=== PATIENT | female | born 1960 | race Caucasian/White ===

== ENCOUNTER → 2018-08-10 | Outpatient (CLI) | payer OTHER | LOC: LABPAT 13:08 | PROVIDERS: ATTEND Orthopaedic Surgery Orthopaedic Surgery of the Spine | DX: Z01.812 Encounter for preprocedural laboratory examination (principal) | CPT/HCPCS: 87070 ==

== ENCOUNTER 2018-09-26 06:26 | Inpatient (IN) | payer OTHER ==
[~2018-09-26 06:26] MED LIST: BACITRACIN 50,000 UNIT, POLYMYXIN B 500,000 UNIT in SODIUM CHLORIDE 0.9% IRRIGATIO 1,00... IRRIGATION ONE; LACTATED RINGERS 1,000 ML IV SCH; LIDOCAINE 1% 20 ML VIAL (10MG/ML) FOR IV START INTRADERMA PRN; METOCLOPRAMIDE 5 MG/ML 2 ML VIAL IVP PRN; ONDANSETRON 4 MG/2 ML VIAL IVP ONE; ceFAZolin IN SWFI 2 GM/20 ML SYRINGE IVP ONE
[2018-09-26 06:58] LABS: Glucose,Whole Blood 77 mg/dL (75-99)
[2018-09-26] MEDS ORDERED: LACTATED RINGERS 1,000 ML IV ONE ×4 (07:00→13:13)
[2018-09-26] MEDS: DEXAMETHASONE SOD PHOSPHATE 10 MG/ML 1 ML VIAL IV ONE ×2 (07:00→15:59)
[2018-09-26] MEDS ORDERED: NEOSTIGMINE 1 MG/ML 10 ML VIAL ONE (07:26)
[2018-09-26] MEDS ORDERED: LIDOCAINE 1% INJ 10MG/ML (20 ML MDV) ONE (07:26)
[2018-09-26] MEDS ORDERED: fentaNYL (PF) 50 MCG/ML 2 ML AMP ONE (07:26)
[2018-09-26] MEDS ORDERED: LACTATED RINGERS 1,000 ML BAG IV ONE (07:26)
[2018-09-26] MEDS ORDERED: MIDAZOLAM 2 MG/2 ML VIAL ONE (07:26)
[2018-09-26] MEDS ORDERED: ePHEDrine SULFATE/0.9% NACL/PF 50 MG/5 ML SYRINGE IV ONE (07:26)
[2018-09-26] MEDS ORDERED: PROPOFOL 10 MG/ML 20 ML VIAL IV ONE (07:26)
[2018-09-26] MEDS ORDERED: GLYCOPYRROLATE 0.2 MG/ML 2 ML VIAL ONE (07:26)
[2018-09-26] MEDS ORDERED: PHENYLEPHRINE-0.9% NACL SYG 1 MG/10 ML SYRINGE ONE (07:26)
[2018-09-26] MEDS ORDERED: HEPARIN SODIUM,PORCINE 10,000 UNIT/ML 1 ML VIAL ONE (07:26)
[2018-09-26] MEDS ORDERED: SUCCINYLCHOLINE CHLORIDE 100 MG/5 ML SYR IV ONE (07:26)
[2018-09-26] MEDS ORDERED: ROCURONIUM BROMIDE 10 MG/ML 10 ML VIAL IV ONE (07:26)
[2018-09-26] MEDS ORDERED: THROMBIN (BOVINE) 5,000 UNIT VIAL TOPICAL ONE (07:33)
[2018-09-26] MEDS ORDERED: LIDOCAINE 0.5%-EPI 1:200,000 50 ML VIAL SQ ONE (07:33)
[2018-09-26] MEDS ORDERED: GELATIN SPONGE,ABSORB (LARGE) 1 EACH SPONGE TOPICAL ONE (07:33)
[2018-09-26 07:56] LABS: Albumin 3.3 g/dL (3.5-5.0); Calcium 8.9 mg/dL (8.4-10.2); Potassium 3.5 mmol/L (3.5-5.1); Total Bilirubin 0.3 mg/dL (0.2-1.3); Total Protein 5.8 g/dL (6.3-8.2)
[2018-09-26 08:06] LABS: INR 0.9 (<1.2); Partial Thromboplastin Time 23.4 sec (22.0-30.0); Prothrombin Time 9.6 sec (9.0-12.0)
[2018-09-26 10:15] LABS: Basophils % (A) 1 %; Eosinophils # (A) 0.2 k/uL (0-0.7); Eosinophils % (A) 4 %; HCT 33.5 % (34.0-46.0); HGB 10.6 gm/dL (11.4-16.0); Hypochromasia Moderate; Lymphocytes # (A) 1.4 k/uL (1.0-4.8); Lymphocytes % (A) 30 %; MCH 30.9 pg (25.0-35.0); MCHC 31.7 g/dL (31.0-37.0); MCV 97.4 fL (80.0-100.0); Mean Platelet Volume 7.4; Monocytes # (A) 0.3 k/uL (0-1.0); Monocytes % (A) 6 %; Neutrophils # (A) 2.7 k/uL (1.3-7.7); Neutrophils % (A) 57 %; Platelet Count 198 k/uL (150-450); RBC 3.44 m/uL (3.80-5.40); RDW 13.8 % (11.5-15.5); WBC 4.7 k/uL (3.8-10.6)
[2018-09-26] MEDS ORDERED: BACITRACIN 50,000 UNIT, POLYMYXIN B 500,000 UNIT in SODIUM CHLORIDE 0.9% IRRIGATIO 1,00... IRRIGATION ONE (10:36)
[2018-09-26] MEDS ORDERED: MAGNESIUM HYDROXIDE 2,400 MG/10 ML CUP PO PRN (12:09)
[2018-09-26] MEDS ORDERED: ONDANSETRON 4 MG/2 ML VIAL IVP PRN (12:09)
[2018-09-26] MEDS ORDERED: HYDROmorphone 1 MG/ML 1 ML SYRINGE IVP PRN (12:09)
[2018-09-26] MEDS ORDERED: BENZOCAINE/MENTHOL LOZENG 1 EACH LOZENGE MUCOUS MEM PRN (12:09)
[2018-09-26] MEDS: HYDROmorphone 0.5 MG/0.5 ML SYRINGE IVP PRN ×4 (12:23→22:28)
--- NOTE | 2018-09-26 12:32 | P.OP ---
Date of Procedure: 09/26/18 Preoperative Diagnosis: Degenerative scoliosis, spondylolisthesis, spinal stenosis, low back pain, degenerative disc disease, lower extremity radiculopathy, Postoperative Diagnosis: Degenerative scoliosis, spondylolisthesis, spinal stenosis, low back pain, degenerative disc disease, lower extremity radiculopathy, Anesthesia: GETA Pathology: none sent Condition: stable Disposition: PACU Description of Procedure: DESCRIPTION OF PROCEDURE(S): BRIEF OPERATIVE NOTE Preoperative Diagnosis: Degenerative scoliosis, spondylolisthesis, spinal stenosis, low back pain, degenerative disc disease, lower extremity radiculopathy, Postoperative Diagnosis:Degenerative scoliosis, spondylolisthesis, spinal stenosis, low back pain, degenerative disc disease, lower extremity radiculopathy, Procedure: Laminectomy and decompressionwith bilateral foraminotomies L2-3 and L3 4 L4 5 L5-S1 Minimally invasive Posterior lateral decompression and facet fusionL2-3 L3 4 L4 5 L5-S1 Minimally invasive Transforaminal lumbar interbody fusion for a 360 fusionL3 4 L4 5 Discectomy for decompressionL3 4 L4 5 Placement of interbody graftL3 4 L4 5 Local autogenous bone grafting harvesting of bone marrow aspirate for use as autograft Use of Cell Saver Use of bone graft extenders Surgeon: Dr. Cruz Medical Technologist Chief: Emory DURÁN who is present throughout the entire the case persistence during positioning, dissection, exposure, visualization, and all crucial elements of the case as well as closure. Anesthesia: General anesthesia per Dr. Cueva Estimated blood loss:approximately 400 mL with approximately 160 mL given back through Cell Saver Complications: None apparent Components implanted:K2M minimally invasive Baker pedicle screw system with 6.5 mm screws 2 rods and cascade interbody cages with 1 osteo amp sponge and 30 mL of DBX bone putty supplement the local autogenous bone graft and bone marrow aspirate Disposition: To recovery room in good stable condition. OPERATIVE INDICATIONS The patient has had long-standing issues in their lower back and lower extremities. she was found have degenerative scoliosis with spondylolisthesis and spinal stenosis. These findings correlated well with her low back and lower show be symptoms.The patient has been through conservative treatment. she is not having any prolonged benefit despite aggressive conservative treatment and was having worsening of her symptoms and worsening of her ability to mobilize and ambulate. We discussed the nature of her issues at length.We discussed various treatment options including surgery, and the patient wishes to proceed with surgery. I felt that there were severe changes at L3 4 and L4 5 with severe changes and listhesis at L2-3 as well. There is also some change at L1 2 with moderate stenosis and seen if he disc degeneration with some moderate stenosis at L5-S1 with significant disc height loss. We discussed the possibility of decompression and fusion and the need to address the full curvature along with her degenerative change and listhesis. She had degenerative scoliosis and she was consented for decompression fusion L2-3 L3 4 L4 5 with possible L1-2 and L5- S1. During the patient's procedure I felt that need to include L5-S1 space but I did not feel we had to include L1-2 spacehas progressed to the procedure itself. We discussed the risk, patient's alternatives and benefits of surgery including but not limited to, risk of bleeding risk of infection, risk of need for further surgery, risk of decreased, loss of motion, muscle function, malunion nonunion, hardware failure, nerve damage, paralysis, heart attack, blindness and . OPERATIVE SUMMARY After discussing all the risks, patient alternatives and benefits at length, the patient elected to proceed with surgical intervention, signed informed consent, and presented for their procedure. The patient was seen and examined in the preoperative holding area and the surgical site was marked. The patient was given antibiotics and brought to the operating room. The patient was sedated and intubated by anesthesia in standard fashion. The patient was positioned on to the operating room table in a prone position on the appropriate frame which was well-padded and well molded. We were careful to pad any bony prominences and pressure points. We were careful to maintain the patient's cervical spine and good neutral alignment and position throughout. The patient was prepped and draped in a normal standard fashion. An appropriate timeout and keystone protocol performed. We were able to proceed with the surgery. The local wound area was infiltrated with local anesthetic. I was able utilize C-arm guidance to establish appropriate position over the pedicles bilaterally at the appropriate levelsfrom L2 to S1. With the appropriate levels confirmed was able to make small stab incisions over the appropriate pedicle sites bilaterally. Utilizing C-arm in his house able to establish a Jamshidi needle over the lateral aspect of the pedicle and advanced the trocar into the pedicle being careful not to breech superiorly inferiorly medially or laterally. Position was confirmed regularly with AP and lateral images on C-arm. I was able to establish the trocar into the pedicle appropriately into the posterior aspect of the vertebral body bilaterally at the appropriate levelsfrom L2 to S1. This was done at each of the pedicle positions and each of the vertebrae at L2-L3 L4-L5 and S1. I was able place the guidewire into the trocar and into the vertebral body appropriately under C-arm guidance. Dissection was taken down over the wire to the appropriate starting position for the screw placed. The appropriate length screw was chosen, threaded over the guidewire and screwed appropriately into the pedicle and vertebral body under C- arm guidance in excellent alignment and position with good bony purchase. This is done at each of the screw sites at the appropriate levelsat L2-L3 L4-L5 and S1. With the screws intact I extended the incision to connect the screw hole sites on the left hand side starting at L3-4 and then at L4-5. I dissected down to establish access over the pars and lamina to the base of the spinous process. I was able to expose the facet joint. The capsule the facet was taken down and showed some facet arthrosis at the joint. I was able to use a combination of curettes and Kerrison rongeurs and a high-speed drill to take down the facet joint and do a facetectomy. Partial laminectomy was also performed. I was able get excellent foraminal decompression and central decompression with undermining across midline to perform a laminectomy centrally and contralaterally. As able get good central decompression. The ligamentum flavum was taken down to further decompress centrally and at bilateral neural foramen. I was able to expose the disc space and visualize the traversing nerve root. Note was made of some disc protrusion at the level causing further compression of the nerve root. I was able to establish a annulotomy at the appropriate level protecting soft tissue and neural structures. Note was made of some disc desiccation at the disc. I performed a complete discectomy with accommodation of curettes and rasps and scrapers. I was able get good endplate preparation at the disc space. I sized for the appropriate size interbody spacer protecting the soft tissue and neural structures. The wound was copiously irrigated and suctioned dry. There is no evidence of any dural tear or leak. I was able to pack the disc space with local autogenous bone graft as well as a small amount of bone graft which was also placed into the interbody cage itself. Protecting the soft tissue structures and neural structures I was able place the interbody cage in good alignment and good position with good fit and fill at the interbody space. His issues was confirmed with C-arm guidance.this was done first at L3 4 and L4 5. I chose not place a interbody device at L2-3 and L5-S1. I was able to decompression laminectomy and bilateral foraminotomies L2-3 and L5-S1. Good hemostasis maintained. There is no evidence of any dural tear or leak. The wound was irrigated and suctioned dry. With the hardware intact, intraoperative C-arm imaging was again taken which showed good alignment and position of the hardware at the appropriate levels. We were then able to measure, contour and place the rods and appropriate hardware bilaterally. I was able to place capcrews, tighten them down, and torque them with the torque screwdriver appropriately. With this intact I was able to place the local autogenous bone graft with additional bone graft enhancer as necessary into the posterior lateral gutters over the decorticated transverse processes. The remainder of the bone graft was placed over the facet joint on the contralateral side after taking down the facet joint capsule. With the bone graft intact, a stable construct, and good decompression at the appropriate levels, we were able to proceed with closure. we had excellent reduction of the listhesis as well as with realignment of the scoliosis with the hardware intact. Good hemostasis was maintained. There is no evidence of dural tear or leak. The fascia was closed for a watertight closure. he subcuticular tissue was closed with absorbable suture. The wound was cleaned and dried and dressed with the appropriate dressing. The drapes were broken down. The patient was gently rolled back onto their hospital bed being careful to maintain their cervical spine and good neutral alignment and position. They were woken up by anesthesia, extubated, and brought to the recovery room in good stable condition. The patient will be admitted to the hospital for appropriate postoperative care, medical management and monitoring. We will continue to follow them closely about the postoperative course.
--- NOTE | 2018-09-26 13:01 | XR ---
Fluoroscopy History: lumbar fusion minimal invasive lumbar fusion, 2min 37sec fl time
[2018-09-26] MEDS ORDERED: diphenhydrAMINE 50 MG/ML 1 ML VIAL IVP ONE (13:11)
--- NOTE | 2018-09-26 15:08 | P.CONS ---
History of Present Illness - Reason for Consult Consult date: 09/26/18 medical management Requesting physician: Stephanie Cruz - History of Present Illness This is a 58-year-old female patient of Dr. Figueroa. Patient presented for an elective laminectomy and decompression with bilateral foraminotomies L2 to L3 and L3 to L4 and L4-L5. minimally invasive posterior lateral decompression and facet fusion of L2 to L3 L3 to L4 and L4 to L5 and fusion of L3 to L4 and L4 to L5. Patient has past medical history of degenerative scoliosis with spinal lithiasis and spinal stenosis. Additional medical history includes GERD, hyperlipidemia, liver disease, see arthritis, hypothyroidism, migraines, hiatal hernia and anxiety. At this time patient remains very sleepy from sedation. Patient does respond falls back to sleep. Patient denies any chest pain or shortness breath. Patient denies nausea vomiting diarrhea. Patient denies any urinary burning or frequency. Review of Systems please rerfer to HPI otherwise unremarkable Past Medical History Past Medical History: GERD/Reflux, Hyperlipidemia, Liver Disease, Osteoarthritis (OA), Thyroid Disorder Additional Past Medical History / Comment(s): primary biliary cirrhosis of liver, migraines, hiatal hernia, hypglycemia History of Any Multi-Drug Resistant Organisms: None Reported Past Surgical History: Back Surgery, Bladder Surgery, Cholecystectomy, Hysterectomy, Orthopedic Surgery Additional Past Surgical History / Comment(s): rt foot bunionectomy, arthroscopy rt knee, boone elbow surgery for spurs/tendons, rt shoulder rotator cuff, liver biopsy, Past Anesthesia/Blood Transfusion Reactions: No Reported Reaction Smoking Status: Former smoker - Past Family History Father Family Medical History: Cancer Medications and Allergies Home Medications Medication Instructions Recorded Confirmed Type Atorvastatin Calcium [Lipitor] 20 mg PO MOWEFR 09/19/18 09/26/18 History Cannabidiol (Cbd) Extract 1 applicate PO DIRECTED PRN 09/19/18 09/26/18 History [Epidiolex] Celecoxib [CeleBREX] 200 mg PO DAILY 09/19/18 09/26/18 History DULoxetine HCL [Cymbalta] 30 mg PO BID 09/19/18 09/26/18 History Ergocalciferol [Vitamin D2] 50,000 unit PO TH 09/19/18 09/26/18 History FLUoxetine HCL [PROzac] 40 mg PO DAILY 09/19/18 09/26/18 History Gabapentin [Neurontin] 600 mg PO BID 09/19/18 09/26/18 History Levothyroxine Sodium [Synthroid] 75 mcg PO DAILY 09/19/18 09/26/18 History Montelukast Sodium [Singulair] 10 mg PO DAILY 09/19/18 09/26/18 History Pantoprazole Sodium [Protonix] 40 mg PO QAM 09/19/18 09/26/18 History Raloxifene [Evista] 60 mg PO HS 09/19/18 09/26/18 History Temazepam [Restoril] 30 mg PO HS 09/19/18 09/26/18 History Topiramate [Topamax] 100 mg PO BID 09/19/18 09/26/18 History Ursodiol [Actigall] 300 mg PO BID 09/19/18 09/26/18 History Allergies Allergy/AdvReac Type Severity Reaction Status Date / Time codeine Allergy Abdominal Verified 09/26/18 14:35 Pain morphine Allergy Abdominal Verified 09/26/18 14:35 Pain acetaminophen [From Tylenol] AdvReac can not Verified 09/26/18 14:35 take due to liver disease Physical Exam Vitals: Vital Signs Temp Pulse Resp BP Pulse Ox 09/26/18 13:45 81 14 98/55 100 09/26/18 13:15 65 14 100/51 100 09/26/18 13:00 81 16 110/53 100 09/26/18 12:45 71 14 96/55 100 09/26/18 12:37 68 14 93/55 100 09/26/18 12:30 75 18 76/45 100 09/26/18 12:15 76 18 88/39 100 09/26/18 12:10 97.7 F 79 16 97/47 97 09/26/18 06:45 97.8 F 75 18 119/59 100 Intake and Output 09/25/18 09/26/18 09/26/18 22:59 06:59 14:59 Intake Total 3000 Output Total 700 Balance 2300 Intake: IV 3000 Output: Urine 250 Estimated Blood Loss 450 Head normocephalic Neck supple Lungs clear to auscultation bilaterally no wheezing or crackles Heart regular rate and rhythm S1-S2, no rub or gallop Abdomen is soft nontender nondistended positive bowel sounds no hepatosplenomegaly Extremities no edema Neuro alert and orientated to 3. Sleepy but follows commands Results CBC & Chem 7: 09/26/18 07:27 09/26/18 07:27 Labs: Abnormal Lab Results - Last 24 Hours (Table) 09/26/18 09/26/18 Range/Units 07:27 07:27 RBC 3.44 L (3.80-5.40) m/uL Hgb 10.6 L (11.4-16.0) gm/dL Hct 33.5 L (34.0-46.0) % Chloride 114 H (98-107) mmol/L Carbon Dioxide 21 L (22-30) mmol/L Total Protein 5.8 L (6.3-8.2) g/dL Albumin 3.3 L (3.5-5.0) g/dL Assessment and Plan Assessment: 1. Status post minimally invasive posterior lateral decompression fusion and transforaminal lumbar interbody fusion L2-L3, L3-L4, L4-L5 with Dr. Cruz 2. History of GERD 4. History of hyperlipidemia 5. History of liver disease 6. History of osteoarthritis 7. History of hypothyroidism 8. History of migraines 9. History of anxiety Thank you for this consultation we'll continue to follow patient closely throughout stay Time with Patient: Greater than 30 (Greater than 60% of the total time spent in counseling and coordination of care. I performed an examination of the patient and discussed their management with the Nurse Practitioner. I have reviewed the Nurse Practitioner's notes and agree with the documented findings and plan of care)
[2018-09-26] MEDS ORDERED: SODIUM CHLORIDE 0.9% 500 ML 500 ML IV ONE (15:29)
[2018-09-26] MEDS: KETOROLAC 30 MG/ML 1 ML VIAL IVP SCH ×2 (15:59→16:00)
[2018-09-26] MEDS: SODIUM CHLORIDE 0.9% 1,000 ML IV SCH (16:00)
[2018-09-26] MEDS: ATORVASTATIN 20 MG TAB PO SCH (16:00)
[2018-09-26] MEDS: ceFAZolin IN SWFI 2 GM/20 ML SYRINGE IVP SCH ×2 (17:44→23:21)
[2018-09-26] MEDS: GABAPENTIN 300 MG CAP PO SCH (20:21)
[2018-09-26] MEDS: DULoxetine HCL 30 MG CAPSULE.DR PO SCH (20:22)
[2018-09-26] MEDS: TOPIRAMATE 100 MG TAB PO SCH (20:22)
[2018-09-26] MEDS: RALOXIFENE 60 MG TAB PO SCH (20:22)
[2018-09-26] MEDS: URSODIOL 300 MG CAP PO SCH (20:22)
[2018-09-26] MEDS: TEMAZEPAM 30 MG CAP PO SCH (22:19)
[2018-09-27] MEDS: HYDROmorphone 0.5 MG/0.5 ML SYRINGE IVP PRN ×6 (02:24→20:45)
[2018-09-27] MEDS: SODIUM CHLORIDE 0.9% 1,000 ML IV SCH ×2 (04:11→17:03)
[2018-09-27] MEDS: LEVOTHYROXINE 75 MCG TAB PO SCH (05:41)
[2018-09-27] MEDS: MONTELUKAST 10 MG TAB PO SCH (08:35)
[2018-09-27] MEDS: DULoxetine HCL 30 MG CAPSULE.DR PO SCH ×2 (08:36→21:59)
[2018-09-27] MEDS: FLUoxetine HCL 20 MG CAP PO SCH (08:36)
[2018-09-27] MEDS: URSODIOL 300 MG CAP PO SCH ×2 (08:36→22:00)
[2018-09-27] MEDS: PANTOPRAZOLE 40 MG TABLET PO SCH (08:36)
[2018-09-27] MEDS: TOPIRAMATE 100 MG TAB PO SCH ×2 (08:37→21:59)
[2018-09-27] MEDS: RALOXIFENE 60 MG TAB PO SCH (08:37)
[2018-09-27] MEDS: SENNOSIDES-DOCUSATE SODIUM 1 EACH TAB PO SCH (08:37)
[2018-09-27] MEDS: GABAPENTIN 300 MG CAP PO SCH ×2 (08:43→21:59)
[2018-09-27 09:01] LABS: Albumin 2.6 g/dL (3.5-5.0); Calcium 8.5 mg/dL (8.4-10.2); Potassium 4.6 mmol/L (3.5-5.1); Total Bilirubin 0.7 mg/dL (0.2-1.3); Total Protein 4.9 g/dL (6.3-8.2)
[2018-09-27 09:07] LABS: Basophils % (A) 0 %; Eosinophils # (A) 0.1 k/uL (0-0.7); Eosinophils % (A) 1 %; HCT 29.3 % (34.0-46.0); Hypochromasia Slight; Lymphocytes # (A) 1.2 k/uL (1.0-4.8); Lymphocytes % (A) 13 %; MCH 29.5 pg (25.0-35.0); MCHC 30.3 g/dL (31.0-37.0); MCV 97.6 fL (80.0-100.0); Monocytes # (A) 0.4 k/uL (0-1.0); Monocytes % (A) 5 %; Neutrophils # (A) 7.1 k/uL (1.3-7.7); Neutrophils % (A) 80 %; Platelet Count 177 k/uL (150-450); RDW 13.6 % (11.5-15.5); WBC 8.9 k/uL (3.8-10.6)
[2018-09-27 09:12] LABS: HGB 8.9 gm/dL (11.4-16.0)
--- NOTE | 2018-09-27 09:24 | P.PN ---
Progress Note - Text Progress Note Date: 09/27/18 Postoperative day #1 Patient is seen and examined today at bedside. The patient has some pain around the surgical site as expected. Pain is being controlled with medication. Physical Exam Afebrile with stable vital signs Abdomen is soft nontender. Chest has good excursion deep and space expiration The incision site is clean dry and intact. No erythema there is no purulence. Her back dressings are intact. Extremities have not had neurologic change from prior to surgery. She has susta ined dorsal flexion plantar flexion and EHL intact Calves and thighs were soft nontender without evidence of DVT. Assessment/Plan Postoperative day #1 status post decompression and fusion L23 L3 4 L4 5 and L5- S1 for her degenerative scoliosis with spondylolisthesis stenosis and lower extremity radiculopathy Patient is progressing as expected from the surgery thus far in terms of her pain. She is able to tolerate her diet thus far and she has yet to get out of bed. We will have her get out of bed with physical therapy today. It is okay for her to ambulate with her without her brace. She does have a brace at bedside which may help give her some support for comfort. We will continue to increase the patient's mobilization with therapy. Hopefully she will be able to increase her mobilization with some walking today and then further walking tomorrow for potential discharge home this weekend We will continue pain control with oral or IV medications. She has liver issues and is unable to take Tylenol. She is on IV Dilaudid and we'll hopefully be able to transition to oral medication, perhaps with oral Dilaudid. She has requested a transdermal patch which may be utilized in the next couple days if she is having good control with oral medicines. We'll continue to follow patient closely.
--- NOTE | 2018-09-27 10:08 | P.PN ---
Subjective Progress Note Date: 09/27/18 This is a 58-year-old female patient of Dr. Figueroa. Patient presented for an elective laminectomy and decompression with bilateral foraminotomies L2 to L3 and L3 to L4 and L4-L5. minimally invasive posterior lateral decompression and facet fusion of L2 to L3 L3 to L4 and L4 to L5 and fusion of L3 to L4 and L4 to L5. Patient has past medical history of degenerative scoliosis with spinal lithiasis and spinal stenosis. Additional medical history includes GERD, hyperlipidemia, liver disease, see arthritis, hypothyroidism, migraines, hiatal hernia and anxiety. At this time patient remains very sleepy from sedation. Patient does respond falls back to sleep. Patient denies any chest pain or shortness breath. Patient denies nausea vomiting diarrhea. Patient denies any urinary burning or frequency. On 09/27/2018 patient is awake and alert 3. Patient did have low blood pressure yesterday requiring 500 mL bolus. Pressure remains low but systolic in the 90s. Patient also having low-grade temps 99.8. Patient is complaining of cough will order urinary analysis and chest x-ray to rule out infection. At this time patient denies any chest pain or shortness of breath. Patient denies nausea vomiting or diarrhea. Patient denies any urinary burning or frequency. hgb low at 8.9 will order iron studies Objective - Vital Signs Vital signs: Vital Signs Temp 98.8 F 09/27/18 07:00 Pulse 92 09/27/18 07:00 Resp 16 09/27/18 07:00 BP 94/64 09/27/18 07:00 Pulse Ox 100 09/27/18 07:00 Intake & Output 09/26/18 09/27/18 09/27/18 18:59 06:59 18:59 Intake Total 3001 Output Total 700 1950 Balance 2301 -1950 Intake: IV 3001 Output: Urine 250 1950 Estimated Blood Loss 450 Other: Voiding Method Indwelling Catheter Indwelling Catheter - Exam Head normocephalic Neck supple Lungs clear to auscultation bilaterally no wheezing or crackles Heart regular rate and rhythm S1-S2, no rub or gallop Abdomen is soft nontender nondistended positive bowel sounds no hepatosplenomegaly Extremities no edema Neuro alert and orientated to 3. - Labs CBC & Chem 7: 09/27/18 08:20 09/27/18 08:20 Labs: Abnormal Lab Results - Last 24 Hours (Table) 09/26/18 09/27/18 09/27/18 Range/Units 07:27 08:20 08:20 RBC 3.44 L 3.00 L (3.80-5.40) m/uL Hgb 10.6 L 8.9 L D (11.4-16.0) gm/dL Hct 33.5 L 29.3 L (34.0-46.0) % MCHC 30.3 L (31.0-37.0) g/dL Sodium 136 L (137-145) mmol/L Chloride 109 H (98-107) mmol/L AST 57 H (14-36) U/L Total Protein 4.9 L (6.3-8.2) g/dL Albumin 2.6 L (3.5-5.0) g/dL Assessment and Plan Assessment: 1. Status post minimally invasive posterior lateral decompression fusion and transforaminal lumbar interbody fusion L2-L3, L3-L4, L4-L5 with Dr. Cruz. Patient is currently postop day 1 2. History of GERD 4. History of hyperlipidemia 5. History of liver disease 6. History of osteoarthritis 7. History of hypothyroidism 8. History of migraines 9. History of anxiety 10. Hypotensive. Patient received 500 mL bolus. We'll continue to monitor 11. Anemia. Urine studies will be ordered hemoglobin 8.9 12. Low-grade temps. Patient having temp of 99.8. UA urine culture and chest x-ray order patient is currently postop day 1ed Thank you for this consultation we'll continue to follow patient closely throughout stay
[2018-09-27] MEDS: HYDROmorphone 2 MG TAB PO PRN (13:44)
[2018-09-27 14:42] LABS: Appearance,Urine Clear (Clear); Bacteria,Urine Rare /hpf; Bilirubin,Urine Negative (Negative); Blood,Urine Trace (Negative); Color,Urine Light Yellow; Glucose,Urine (UA) Negative (Negative); Ketones,Urine Negative (Negative); Leukocyte Esterase,Urine Trace (Negative); Mucus,Urine Rare /hpf; Nitrite,Urine Negative (Negative); Protein,Urine Negative (Negative); RBC,Urine 9 /hpf (0-5); Specific Gravity,Urine 1.007 (1.001-1.035); Squamous Epithelial Cell,Urine <1 /hpf (0-4); Urobilinogen,Urine <2.0 mg/dL (<2.0)
[2018-09-27 16:35] LABS: Iron Saturation 7.66 (12.00-45.00)
--- NOTE | 2018-09-27 17:12 | XR ---
EXAMINATION TYPE: XR chest 2V DATE OF EXAM: 09/27/2018 COMPARISON: NONE HISTORY: Chest pain TECHNIQUE: Frontal and lateral views of the chest are obtained. FINDINGS: Heart and mediastinum are normal. Lungs are clear. Diaphragm is normal. Bony thorax is int act. IMPRESSION: Normal chest.
[2018-09-27] MEDS: TEMAZEPAM 30 MG CAP PO SCH (21:59)
[2018-09-28] MEDS: SODIUM CHLORIDE 0.9% 1,000 ML IV SCH ×2 (04:45→17:29)
[2018-09-28] MEDS: HYDROmorphone 0.5 MG/0.5 ML SYRINGE IVP PRN ×4 (04:45→21:21)
[2018-09-28] MEDS: LEVOTHYROXINE 75 MCG TAB PO SCH (05:39)
[2018-09-28] MEDS: SENNOSIDES-DOCUSATE SODIUM 1 EACH TAB PO SCH (07:13)
[2018-09-28] MEDS: PANTOPRAZOLE 40 MG TABLET PO SCH (07:13)
[2018-09-28] MEDS: GABAPENTIN 300 MG CAP PO SCH ×2 (07:13→20:58)
[2018-09-28] MEDS: TOPIRAMATE 100 MG TAB PO SCH ×2 (07:13→20:59)
[2018-09-28] MEDS: MONTELUKAST 10 MG TAB PO SCH (07:13)
[2018-09-28] MEDS: ATORVASTATIN 20 MG TAB PO SCH (07:14)
[2018-09-28] MEDS: DULoxetine HCL 30 MG CAPSULE.DR PO SCH ×2 (07:14→20:58)
[2018-09-28] MEDS: URSODIOL 300 MG CAP PO SCH ×2 (07:14→20:59)
[2018-09-28] MEDS: FLUoxetine HCL 20 MG CAP PO SCH (07:14)
[2018-09-28 08:20] LABS: Basophils % (A) 0 %; Eosinophils # (A) 0.2 k/uL (0-0.7); Eosinophils % (A) 2 %; HCT 24.6 % (34.0-46.0); HGB 7.8 gm/dL (11.4-16.0); Hypochromasia Slight; Lymphocytes # (A) 1.9 k/uL (1.0-4.8); Lymphocytes % (A) 17 %; MCH 30.1 pg (25.0-35.0); MCHC 31.8 g/dL (31.0-37.0); MCV 94.8 fL (80.0-100.0); Mean Platelet Volume 7.4; Monocytes # (A) 0.5 k/uL (0-1.0); Monocytes % (A) 5 %; Neutrophils # (A) 8.3 k/uL (1.3-7.7); Neutrophils % (A) 75 %; Platelet Count 142 k/uL (150-450); RBC 2.59 m/uL (3.80-5.40); RDW 13.4 % (11.5-15.5); WBC 11.1 k/uL (3.8-10.6)
--- NOTE | 2018-09-28 08:32 | P.PN ---
Progress Note - Text Progress Note Date: 09/28/18 Orthopedic Spine Patient is a pleasant 58-year-old female who is seen and examined at the bedside following posterior lateral decompression and fusion performed Monday. Postoperatively she continues to progress significantly slowly. She was able to ambulate to the other side of the room and sit in a chair for approximately 20 minutes yesterday. Other than that she has remained lying in bed. She has significant difficulty with any mobility of her lumbar spine. Her Vaca catheter continues to be intact. She is known to have abnormal liver function tests and is unable to take acetaminophen. She continues to receive Dilaudid IV and oral for pain control. She has not been able to increase mobility. She has an LSO brace at the bedside that is not currently intact. She has been using her incentive spirometer. She is unable to roll to her side. At this time she does not feel she would be able to be discharged home and feels rehabilitation would be a better plan of care the time of discharge. Currently does not complain of nausea, vomiting, fever, or chills. Patient states pain has been fairly well controlled. Physical Exam Lumbar Fusion: Status post surgical day number 2 Patient is awake, alert, and oriented 3 Vital signs stable Good chest excursion with deep inspiration and expiration Abdomen soft nontender Dorsiflexion, plantarflexion, and extensor hallucis longus positive sustained bilaterally No signs or symptoms of DVT; no calf pain; pneumatic cuffs not currently intact bilateral lower extremities Dressing is intact with some dried blood on the Telfa most significant on the right; no erythema, purulence, or signs of infection Avca catheter intact Neurovascularly intact bilaterally lower extremities Assessment: L2-3, L3-4, L4-5, L5-S1 minimally invasive posterior lateral decompression and fusion L3-4 and L4-5 transforaminal lumbar interbody fusion Low back pain Degenerative scoliosis Lumbar degenerative disc disease Spondylolisthesis History of liver disease, cirrhosis with abnormal liver function tests Hyperlipidemia History of hypoglycemia History of hypothyroidism Plan: 1. Ambulate as tolerated; work with Physical Therapy to increase mobilization; encouraged use LSO brace for comfort support during increased activities and ambulation 2. Continue pain control with IV and oral medications; we will try to continue weaning the patient off of Dilaudid IV and transitioned to oral Dilaudid. Patient is unable to take acetaminophen due to abnormal liver function. When she is able to transition to oral medications, we may also plan to utilize a transdermal patch for pain control 3. Dressing to be removed and replaced with Telfa and Tegaderm 4. We will plan to discontinue the Vaca catheter today 5. Medical management can continue to manage patient for patient's other medical diagnoses 6. We will continue to follow the patient closely; patient has been progressing significantly slowly postoperatively. She continues to require IV narcotic pain medication. She is unable to perform any active mobility on her own without significant difficulty. At this time we will plan for discharge to a rehabilitation facility. We'll plan consultation with case management to work on her approval for rehabilitation. Given her significant difficulty with mobility progression postoperatively and requirement for IV narcotic pain medication, we would plan for discharge as early as tomorrow, 09/29/2018, but discussed she'll most likely remain in the hospital over the weekend with plans to discharge to rehabilitation facility this coming 10/01/2018. 6. Patient can follow-up with Emory Gamez PA-C or Dr. Ho Cruz at [facility] in 2-3 weeks following discharge
[2018-09-28 08:35] LABS: ALT 27 U/L (9-52); AST 41 U/L (14-36); Albumin 2.2 g/dL (3.5-5.0); Alkaline Phosphatase 92 U/L (38-126); Anion Gap 3 mmol/L; Blood Urea Nitrogen 7 mg/dL (7-17); Calcium 8.2 mg/dL (8.4-10.2); Carbon Dioxide 21 mmol/L (22-30); Chloride 112 mmol/L (98-107); Glucose 88 mg/dL (74-99); Potassium 3.5 mmol/L (3.5-5.1); Sodium 136 mmol/L (137-145); Total Bilirubin 0.6 mg/dL (0.2-1.3); Total Protein 4.4 g/dL (6.3-8.2)
[2018-09-28] MEDS: FERROUS SULFATE 325 MG TAB PO SCH ×2 (09:56→20:58)
--- NOTE | 2018-09-28 10:56 | P.PN ---
Subjective Progress Note Date: 09/28/18 This is a 58-year-old female patient of Dr. Figueroa. Patient presented for an elective laminectomy and decompression with bilateral foraminotomies L2 to L3 and L3 to L4 and L4-L5. minimally invasive posterior lateral decompression and facet fusion of L2 to L3 L3 to L4 and L4 to L5 and fusion of L3 to L4 and L4 to L5. Patient has past medical history of degenerative scoliosis with spinal lithiasis and spinal stenosis. Additional medical history includes GERD, hyperlipidemia, liver disease, see arthritis, hypothyroidism, migraines, hiatal hernia and anxiety. At this time patient remains very sleepy from sedation. Patient does respond falls back to sleep. Patient denies any chest pain or shortness breath. Patient denies nausea vomiting diarrhea. Patient denies any urinary burning or frequency. On 09/27/2018 patient is awake and alert 3. Patient did have low blood pressure yesterday requiring 500 mL bolus. Pressure remains low but systolic in the 90s. Patient also having low-grade temps 99.8. Patient is complaining of cough will order urinary analysis and chest x-ray to rule out infection. At this time patient denies any chest pain or shortness of breath. Patient denies nausea vomiting or diarrhea. Patient denies any urinary burning or frequency. hgb low at 8.9 will order iron studies On 09/28/2018 patient awake and alert 3. Patient still having some increased back pain. Patient's hemoglobin low at 7.8. Iron studies low. Ferrous sulfate added. At this time patient denies any chest pain or shortness breath. Patient denies nausea vomiting or diarrhea. Patient denies any urinary burning or frequency. Objective - Vital Signs Vital signs: Vital Signs Temp 98.5 F 09/28/18 07:00 Pulse 93 09/28/18 07:00 Resp 14 09/28/18 07:00 BP 100/59 09/28/18 07:00 Pulse Ox 97 09/28/18 07:00 Intake & Output 09/27/18 09/28/18 09/28/18 18:59 06:59 18:59 Intake Total 1175 Output Total 3900 1000 Balance -3900 175 Intake: Intake, IV Titration 975 Amount Sodium Chloride 0.9% 1, 975 000 ml @ 75 mls/hr IV . [id number] [facility] Rx#:[id number] Oral 200 Output: Urine 3900 1000 Uretheral (Vaca) 1700 1000 Other: Voiding Method Indwelling Catheter Indwelling Catheter - Exam Head normocephalic Neck supple Lungs clear to auscultation bilaterally no wheezing or crackles Heart regular rate and rhythm S1-S2, no rub or gallop Abdomen is soft nontender nondistended positive bowel sounds no hepatosplenomegaly Extremities no edema Neuro alert and orientated to 3. - Labs CBC & Chem 7: 09/28/18 07:32 09/28/18 07:32 Labs: Abnormal Lab Results - Last 24 Hours (Table) 09/27/18 09/27/18 09/28/18 Range/Units 08:20 14:00 07:32 WBC (3.8-10.6) k/uL RBC (3.80-5.40) m/uL Hgb (11.4-16.0) gm/dL Hct (34.0-46.0) % Plt Count (150-450) k/uL Neutrophils # (1.3-7.7) k/uL Sodium 136 L (137-145) mmol/L Chloride 112 H (98-107) mmol/L Carbon Dioxide 21 L (22-30) mmol/L Calcium 8.2 L (8.4-10.2) mg/dL Iron 16 L (50-170) ug/dL TIBC 209 L (228-460) ug/dL Iron Saturation 7.66 L (12.00-45.00) Ferritin 305.2 H (10.0-291.0) ng/mL AST 41 H (14-36) U/L Total Protein 4.4 L (6.3-8.2) g/dL Albumin 2.2 L (3.5-5.0) g/dL Urine Blood Trace H (Negative) Ur Leukocyte Esterase Trace H (Negative) Urine RBC 9 H (0-5) /hpf Urine Bacteria Rare H (None) /hpf Urine Mucus Rare H (None) /hpf 09/28/18 Range/Units 07:32 WBC 11.1 H (3.8-10.6) k/uL RBC 2.59 L (3.80-5.40) m/uL Hgb 7.8 L (11.4-16.0) gm/dL Hct 24.6 L (34.0-46.0) % Plt Count 142 L (150-450) k/uL Neutrophils # 8.3 H (1.3-7.7) k/uL Sodium (137-145) mmol/L Chloride (98-107) mmol/L Carbon Dioxide (22-30) mmol/L Calcium (8.4-10.2) mg/dL Iron (50-170) ug/dL TIBC (228-460) ug/dL Iron Saturation (12.00-45.00) Ferritin (10.0-291.0) ng/mL AST (14-36) U/L Total Protein (6.3-8.2) g/dL Albumin (3.5-5.0) g/dL Urine Blood (Negative) Ur Leukocyte Esterase (Negative) Urine RBC (0-5) /hpf Urine Bacteria (None) /hpf Urine Mucus (None) /hpf Assessment and Plan Assessment: 1. Status post minimally invasive posterior lateral decompression fusion and transforaminal lumbar interbody fusion L2-L3, L3-L4, L4-L5 with Dr. Cruz. Patient is currently postop day 2 2. History of GERD 4. History of hyperlipidemia 5. History of liver disease 6. History of osteoarthritis 7. History of hypothyroidism 8. History of migraines 9. History of anxiety 10. Hypotensive. Patient received 500 mL bolus. We'll continue to monitor 11. Acute expected blood loss anemia. Hemoglobin 7.8. started on ferrous sulfate 12. Low-grade temps. Patient having temp of 99.8. UA showing trace amount of leukocyte Estrace. Chest x-ray negative. Urine culture pending Thank you for this consultation we'll continue to follow patient closely throughout stay Planning discharge to rehab on Monday I performed an examination of the patient and discussed their management with the Nurse Practitioner. I have reviewed the Nurse Practitioner's notes and a gree with the documented findings and plan of care
[2018-09-28] MEDS: RALOXIFENE 60 MG TAB PO SCH (20:58)
[2018-09-28] MEDS: TEMAZEPAM 30 MG CAP PO SCH (20:58)
[2018-09-29] MEDS: HYDROmorphone 2 MG TAB PO PRN ×2 (01:59→10:58)
[2018-09-29] MEDS: LEVOTHYROXINE 75 MCG TAB PO SCH (05:41)
[2018-09-29] MEDS: HYDROmorphone 0.5 MG/0.5 ML SYRINGE IVP PRN ×3 (05:41→22:19)
[2018-09-29] MEDS: SODIUM CHLORIDE 0.9% 1,000 ML IV SCH ×2 (07:14→19:55)
[2018-09-29] MEDS ORDERED: TEMAZEPAM 15 MG CAP PO PRN (07:48)
--- NOTE | 2018-09-29 07:55 | P.PN ---
Progress Note - Text Progress Note Date: 09/29/18 Postoperative day #3 Patient is seen and examined today at bedside. The patient has some pain around the surgical site as expected. Pain is being controlled with medication, though the patient is overly sleepy and having significant difficulty with changing positions. She feels like she did well. She has been able to eat. Physical Exam Afebrile with stable vital signs Abdomen is soft nontender. Chest has good excursion deep and space expiration The incision site is clean dry and intact. No erythema there is no purulence. There is no significant bleeding. There is no significant fluid collection. Extremities have not had neurologic change from prior to surgery. She has sustained dorsal to plantar flexion and EHL intact. Calves and thighs were soft nontender without evidence of DVT. Hemoglobin yesterday 7.8 Assessment/Plan Postoperative day #3 status post decompression fusion L2-3 L3 4 L4 5 and L5-S1 for her degenerative scoliosis with spondylolisthesis and spinal stenosis with lower extremity radiculopathy Patient is progressing somewhat slowly from the surgery. She has a number of issues with taking medications due to her diminished liver function and we have been trying to control her pain with IV and oral Dilaudid. She seems to be slightly over medicated with that a lot of particularly in the evenings and she is overly sleepy and it is difficult for her to mobilize and to mentally to go with her pain. I'll try to decrease medicine and convert her over to orals. Hopefully this will allow her to still control her pain while increasing her mobilization and improve her mental acuity so that she can manage her pain better. The patient has acute blood loss anemia and has been started on iron which I think is appropriate. She will continue her medical management. We will continue to increase the patient's mobilization with therapy. She is having great deal of trouble with her transitioning but is able to mobilize and walk. She needs to increase her activity such she can become more independent with her transfers. Case management has been cultured consulted in regards to possible placement versus home therapy. The patient has been moving somewhat slowly thus far but will likely be able to be discharged on Monday. We will continue pain control with oral or IV medications. We'll continue to follow patient closely.
[2018-09-29] MEDS: FERROUS SULFATE 325 MG TAB PO SCH ×2 (08:04→21:00)
[2018-09-29] MEDS: PANTOPRAZOLE 40 MG TABLET PO SCH (08:04)
[2018-09-29] MEDS: FLUoxetine HCL 20 MG CAP PO SCH (08:04)
[2018-09-29] MEDS: MONTELUKAST 10 MG TAB PO SCH (08:04)
[2018-09-29] MEDS: TOPIRAMATE 100 MG TAB PO SCH ×2 (08:04→21:01)
[2018-09-29] MEDS: GABAPENTIN 300 MG CAP PO SCH ×2 (08:04→21:00)
[2018-09-29] MEDS: SENNOSIDES-DOCUSATE SODIUM 1 EACH TAB PO SCH (08:04)
[2018-09-29] MEDS: URSODIOL 300 MG CAP PO SCH ×2 (08:05→21:01)
[2018-09-29] MEDS: DULoxetine HCL 30 MG CAPSULE.DR PO SCH ×2 (08:05→21:00)
[2018-09-29 08:17] LABS: Basophils % (A) 0 %; Eosinophils # (A) 0.4 k/uL (0-0.7); Eosinophils % (A) 5 %; HCT 23.3 % (34.0-46.0); HGB 7.4 gm/dL (11.4-16.0); Hypochromasia Slight; Lymphocytes # (A) 1.6 k/uL (1.0-4.8); Lymphocytes % (A) 19 %; MCH 30.1 pg (25.0-35.0); MCHC 31.6 g/dL (31.0-37.0); MCV 95.1 fL (80.0-100.0); Mean Platelet Volume 7.4; Monocytes # (A) 0.4 k/uL (0-1.0); Monocytes % (A) 5 %; Neutrophils # (A) 5.8 k/uL (1.3-7.7); Neutrophils % (A) 70 %; Platelet Count 139 k/uL (150-450); RBC 2.45 m/uL (3.80-5.40); RDW 13.5 % (11.5-15.5); WBC 8.3 k/uL (3.8-10.6)
[2018-09-29 08:29] LABS: ALT 18 U/L (9-52); AST 32 U/L (14-36); Albumin 2.1 g/dL (3.5-5.0); Alkaline Phosphatase 97 U/L (38-126); Anion Gap 4 mmol/L; Blood Urea Nitrogen 6 mg/dL (7-17); Calcium 7.8 mg/dL (8.4-10.2); Carbon Dioxide 18 mmol/L (22-30); Chloride 115 mmol/L (98-107); Glucose 85 mg/dL (74-99); Potassium 3.2 mmol/L (3.5-5.1); Sodium 137 mmol/L (137-145); Total Bilirubin 0.5 mg/dL (0.2-1.3); Total Protein 4.3 g/dL (6.3-8.2)
[2018-09-29] MEDS ORDERED: Potassium Replacement Protocol 1 EACH MISC MISCELLANE PRN (13:33)
--- NOTE | 2018-09-29 14:05 | P.PN ---
Subjective Progress Note Date: 09/29/18 This is a 58-year-old female patient of Dr. Figueroa. Patient presented for an elective laminectomy and decompression with bilateral foraminotomies L2 to L3 and L3 to L4 and L4-L5. minimally invasive posterior lateral decompression and facet fusion of L2 to L3 L3 to L4 and L4 to L5 and fusion of L3 to L4 and L4 to L5. Patient has past medical history of degenerative scoliosis with spinal lithiasis and spinal stenosis. Additional medical history includes GERD, hyperlipidemia, liver disease, see arthritis, hypothyroidism, migraines, hiatal hernia and anxiety. At this time patient remains very sleepy from sedation. Patient does respond falls back to sleep. Patient denies any chest pain or shortness breath. Patient denies nausea vomiting diarrhea. Patient denies any urinary burning or frequency. On 09/27/2018 patient is awake and alert 3. Patient did have low blood pressure yesterday requiring 500 mL bolus. Pressure remains low but systolic in the 90s. Patient also having low-grade temps 99.8. Patient is complaining of cough will order urinary analysis and chest x-ray to rule out infection. At this time patient denies any chest pain or shortness of breath. Patient denies nausea vomiting or diarrhea. Patient denies any urinary burning or frequency. hgb low at 8.9 will order iron studies On 09/28/2018 patient awake and alert 3. Patient still having some increased back pain. Patient's hemoglobin low at 7.8. Iron studies low. Ferrous sulfate added. At this time patient denies any chest pain or shortness breath. Patient denies nausea vomiting or diarrhea. Patient denies any urinary burning or frequency. On 09/29/2018 patient is alert and oriented 3 complaining of back pain and generalized weakness otherwise no complaints there is no fever or chills no he adache or dizziness no chest pain no shortness of breath no cough no nausea or vomiting no abdominal pain no diarrhea no burning with urination no frequency or urgency there is no hematuria and no blood in the stools. Hemoglobin today is down to 7.4 potassium is down to 3.2 albumin level is down to 2.1 Objective - Vital Signs Vital signs: Vital Signs Temp 99.7 F H 09/29/18 07:00 Pulse 105 H 09/29/18 07:00 Resp 12 09/29/18 08:00 BP 103/64 09/29/18 07:00 Pulse Ox 94 L 09/29/18 07:00 Intake & Output 09/28/18 09/29/18 09/29/18 18:59 06:59 18:59 Intake Total 320 750 Output Total 450 Balance 320 300 Intake: Intake, IV Titration 750 Amount Sodium Chloride 0.9% 1, 750 000 ml @ 75 mls/hr IV . [id number] [facility] Rx#:[id number] Oral 320 Output: Urine 450 Other: Voiding Method Indwelling Catheter Bedside Commode Bedside Commode # Voids 1 # Bowel Movements 1 - Exam In general patient is alert and oriented 3 in no apparent distress Head normocephalic and atraumatic Neck supple no JVD no goiter Lungs clear to auscultation bilaterally no wheezing or crackles Heart regular rate and rhythm S1-S2, no rub or gallop Abdomen is soft nontender nondistended positive bowel sounds no hepatosple nomegaly Extremities no edema no cyanosis or clubbing Neuro no gross focal neurological deficit - Labs CBC & Chem 7: 09/29/18 07:02 09/29/18 07:02 Labs: Abnormal Lab Results - Last 24 Hours (Table) 09/29/18 09/29/18 Range/Units 07:02 07:02 RBC 2.45 L (3.80-5.40) m/uL Hgb 7.4 L (11.4-16.0) gm/dL Hct 23.3 L (34.0-46.0) % Plt Count 139 L (150-450) k/uL Potassium 3.2 L (3.5-5.1) mmol/L Chloride 115 H (98-107) mmol/L Carbon Dioxide 18 L (22-30) mmol/L BUN 6 L (7-17) mg/dL Calcium 7.8 L (8.4-10.2) mg/dL Total Protein 4.3 L (6.3-8.2) g/dL Albumin 2.1 L (3.5-5.0) g/dL Microbiology - Last 24 Hours (Table) 09/28/18 20:00 Urine Culture - Preliminary Urine,Voided Assessment and Plan Plan: 1. Status post minimally invasive posterior lateral decompression fusion and transforaminal lumbar interbody fusion L2-L3, L3-L4, L4-L5 with Dr. Pasia. Patient is currently postop day 2 2. History of GERD 4. History of hyperlipidemia 5. History of liver disease 6. History of osteoarthritis 7. History of hypothyroidism 8. History of migraines 9. History of anxiety 10. Hypotensive. Patient received 500 mL bolus. We'll continue to monitor 11. Acute expected blood loss anemia. Hemoglobin 7.8. started on ferrous sulfate 12. Low-grade temps. Patient having temp of 99.8. UA showing trace amount of leukocyte Estrace. Chest x-ray negative. Urine culture pending Today patient was seen and examined medication and lab results were reviewed At this time will add insure 1 can 3 times a day with meals Will add 1 dose of IV iron 125 mg today Will start potassium replacement protocol Recheck labs and follow-up in a.m. Planning discharge to rehab on Monday
[2018-09-29] MEDS ORDERED: SODIUM FERRIC GLUCONAT-SUCROSE 125 MG in SODIUM CHLORIDE 0.9% 100 ML IVPB ONE (15:00)
[2018-09-29] MEDS: RALOXIFENE 60 MG TAB PO SCH (21:00)
[2018-09-29] MEDS: POTASSIUM CHLORIDE ER 20 MEQ TAB.ER PO SCH ×2 (21:00→22:16)
[2018-09-30] MEDS: HYDROmorphone 2 MG TAB PO PRN ×3 (03:11→20:18)
[2018-09-30] MEDS: POTASSIUM CHLORIDE ER 20 MEQ TAB.ER PO SCH ×2 (03:11→05:50)
[2018-09-30] MEDS: LEVOTHYROXINE 75 MCG TAB PO SCH (05:50)
[2018-09-30] MEDS: HYDROmorphone 0.5 MG/0.5 ML SYRINGE IVP PRN ×2 (05:50→16:44)
[2018-09-30 09:10] LABS: ALT 29 U/L (9-52); AST 33 U/L (14-36); Albumin 2.6 g/dL (3.5-5.0); Alkaline Phosphatase 129 U/L (38-126); Anion Gap 6 mmol/L; Blood Urea Nitrogen 6 mg/dL (7-17); Calcium 8.5 mg/dL (8.4-10.2); Carbon Dioxide 19 mmol/L (22-30); Chloride 111 mmol/L (98-107); Glucose 77 mg/dL (74-99); Sodium 136 mmol/L (137-145); Total Bilirubin 1.4 mg/dL (0.2-1.3); Total Protein 5.1 g/dL (6.3-8.2)
[2018-09-30 09:18] LABS: Basophils % (A) 0 %; Eosinophils # (A) 0.2 k/uL (0-0.7); Eosinophils % (A) 2 %; HCT 25.5 % (34.0-46.0); HGB 8.1 gm/dL (11.4-16.0); Hypochromasia Slight; Lymphocytes # (A) 1.1 k/uL (1.0-4.8); Lymphocytes % (A) 11 %; MCH 30.4 pg (25.0-35.0); MCHC 31.7 g/dL (31.0-37.0); MCV 95.9 fL (80.0-100.0); Mean Platelet Volume 8.2; Monocytes # (A) 0.4 k/uL (0-1.0); Monocytes % (A) 4 %; Neutrophils # (A) 8.2 k/uL (1.3-7.7); Neutrophils % (A) 81 %; Platelet Count 179 k/uL (150-450); RBC 2.66 m/uL (3.80-5.40); RDW 13.6 % (11.5-15.5); WBC 10.1 k/uL (3.8-10.6)
--- NOTE | 2018-09-30 11:13 | P.PN ---
Subjective Progress Note Date: 09/30/18 This is a 58-year-old female patient of Dr. Figueroa. Patient presented for an elective laminectomy and decompression with bilateral foraminotomies L2 to L3 and L3 to L4 and L4-L5. minimally invasive posterior lateral decompression and facet fusion of L2 to L3 L3 to L4 and L4 to L5 and fusion of L3 to L4 and L4 to L5. Patient has past medical history of degenerative scoliosis with spinal lithiasis and spinal stenosis. Additional medical history includes GERD, hyperlipidemia, liver disease, see arthritis, hypothyroidism, migraines, hiatal hernia and anxiety. At this time patient remains very sleepy from sedation. Patient does respond falls back to sleep. Patient denies any chest pain or shortness breath. Patient denies nausea vomiting diarrhea. Patient denies any urinary burning or frequency. On 09/27/2018 patient is awake and alert 3. Patient did have low blood pressure yesterday requiring 500 mL bolus. Pressure remains low but systolic in the 90s. Patient also having low-grade temps 99.8. Patient is complaining of cough will order urinary analysis and chest x-ray to rule out infection. At this time patient denies any chest pain or shortness of breath. Patient denies nausea vomiting or diarrhea. Patient denies any urinary burning or frequency. hgb low at 8.9 will order iron studies On 09/28/2018 patient awake and alert 3. Patient still having some increased back pain. Patient's hemoglobin low at 7.8. Iron studies low. Ferrous sulfate added. At this time patient denies any chest pain or shortness breath. Patient denies nausea vomiting or diarrhea. Patient denies any urinary burning or frequency. On 09/29/2018 patient is alert and oriented 3 complaining of back pain and generalized weakness otherwise no complaints there is no fever or chills no he adache or dizziness no chest pain no shortness of breath no cough no nausea or vomiting no abdominal pain no diarrhea no burning with urination no frequency or urgency there is no hematuria and no blood in the stools. Hemoglobin today is down to 7.4 potassium is down to 3.2 albumin level is down to 2.1 On 09/30/2018 patient was seen and examined on the medical floor she is alert and oriented 3 in no distress she is feeling better, back pain and generalized weakness has improved since yesterday, otherwise she denies any complaints there is no fever or chills no headache or dizziness no chest pain no shortness of breath no cough no nausea or vomiting no abdominal pain no diarrhea and no urin angelo symptoms. Laboratory data has also improved since yesterday, hemoglobin is up to 8.1 potassium is up to normal 4.0 and albumin is up to 2.6 Objective - Vital Signs Vital signs: Vital Signs Temp 98.2 F 09/30/18 07:00 Pulse 84 09/30/18 07:00 Resp 12 09/30/18 07:00 BP 133/68 09/30/18 07:00 Pulse Ox 99 09/30/18 07:00 Intake & Output 09/29/18 09/30/18 09/30/18 18:59 06:59 18:59 Other: Voiding Method Bedside Commode Toilet # Voids 2 2 # Bowel Movements 1 - Exam In general patient is alert and oriented 3 in no apparent distress Head normocephalic and atraumatic Neck supple no JVD no goiter Lungs clear to auscultation bilaterally no wheezing or crackles Heart regular rate and rhythm S1-S2, no rub or gallop Abdomen is soft nontender nondistended positive bowel sounds no hepatosplenomegaly Extremities no edema no cyanosis or clubbing Neuro no gross focal neurological deficit - Labs CBC & Chem 7: 09/30/18 08:03 09/30/18 08:03 Labs: Abnormal Lab Results - Last 24 Hours (Table) 09/30/18 09/30/18 Range/Units 08:03 08:03 RBC 2.66 L (3.80-5.40) m/uL Hgb 8.1 L (11.4-16.0) gm/dL Hct 25.5 L (34.0-46.0) % Neutrophils # 8.2 H (1.3-7.7) k/uL Sodium 136 L (137-145) mmol/L Chloride 111 H (98-107) mmol/L Carbon Dioxide 19 L (22-30) mmol/L BUN 6 L (7-17) mg/dL Total Bilirubin 1.4 H (0.2-1.3) mg/dL Alkaline Phosphatase 129 H (38-126) U/L Total Protein 5.1 L (6.3-8.2) g/dL Albumin 2.6 L (3.5-5.0) g/dL Microbiology - Last 24 Hours (Table) 09/28/18 20:00 Urine Culture - Preliminary Urine,Voided Group D Enterococcus Assessment and Plan Plan: 1. Status post minimally invasive posterior lateral decompression fusion and transforaminal lumbar interbody fusion L2-L3, L3-L4, L4-L5 with Dr. Cruz. Patient is currently postop day 2 2. History of GERD 4. History of hyperlipidemia 5. History of liver disease 6. History of osteoarthritis 7. History of hypothyroidism 8. History of migraines 9. History of anxiety 10. Hypotensive. Patient received 500 mL bolus. We'll continue to monitor 11. Acute expected blood loss anemia. Hemoglobin 7.8. started on ferrous sulfate 12. Low-grade temps. Patient having temp of 99.8. UA showing trace amount of leukocyte Estrace. Chest x-ray negative. Urine culture pending Today patient was seen and examined medication and lab results were reviewed At this time will add insure 1 can 3 times a day with meals Will add 1 dose of IV iron 125 mg today Will start potassium replacement protocol Recheck labs and follow-up in a.m. Planning discharge to rehab on Monday
[2018-09-30] MEDS: SENNOSIDES-DOCUSATE SODIUM 1 EACH TAB PO SCH (11:20)
[2018-09-30] MEDS: SODIUM CHLORIDE 0.9% 1,000 ML IV SCH ×2 (11:20→20:14)
[2018-09-30] MEDS: PANTOPRAZOLE 40 MG TABLET PO SCH (11:20)
[2018-09-30] MEDS: MONTELUKAST 10 MG TAB PO SCH (11:20)
[2018-09-30] MEDS: GABAPENTIN 300 MG CAP PO SCH ×2 (11:21→20:19)
[2018-09-30] MEDS: URSODIOL 300 MG CAP PO SCH ×2 (11:21→20:19)
[2018-09-30] MEDS: DULoxetine HCL 30 MG CAPSULE.DR PO SCH ×2 (11:22→20:19)
[2018-09-30] MEDS: FERROUS SULFATE 325 MG TAB PO SCH ×2 (11:22→20:19)
[2018-09-30] MEDS: FLUoxetine HCL 20 MG CAP PO SCH (11:22)
[2018-09-30] MEDS: TOPIRAMATE 100 MG TAB PO SCH ×2 (11:23→20:19)
--- NOTE | 2018-09-30 14:57 | P.PN ---
Subjective Progress Note Date: 09/30/18 This patient is a 58-year-old female who is status-post posterior lateral decompression and fusion on 09/26/[address] Cruz. Patient states her pain is well-controlled at the moment. She states that she has been up ambulating in the villaseñor and into the bathroom with the assistance of physical therapy and walker. She states she has been tolerating her diet well, she states she is urinating without issue and has had multiple bowel movements since surgery. Patient states that she spoke with social work and she is unable to be discharged to [facility] due to insurance reasons. Therefore, the patient states that if she cannot could [facility] she would like to return home. Patient denies any new complaints today. The patient denies nausea, vomiting, fevers, chills, numbness or tingling of her legs. Vital signs stable. Objective - Vital Signs Vital signs: Vital Signs Temp 98.2 F 09/30/18 07:00 Pulse 84 09/30/18 07:00 Resp 12 09/30/18 07:00 BP 133/68 09/30/18 07:00 Pulse Ox 99 09/30/18 07:00 Intake & Output 09/29/18 09/30/18 09/30/18 18:59 06:59 18:59 Other: Voiding Method Bedside Commode Toilet # Voids 2 2 # Bowel Movements 1 - Exam On examination, the patient is lying in bed in no apparent distress. The patient is alert and oriented 3. Her breathing appears nonlabored. On inspection of the incision site, incision is clean, dry, and intact. There is no surrounding erythema, warmth, or fluctuance. There are no signs of infection. There is no active drainage. The patient is able to dorsiflex and plantarflex her ankles bilaterally. Her bilateral lower extremities are warm and well-perfused with brisk capillary refill distally. Her calves are soft and nontender bilaterally. There are no signs of DVT. Vital signs stable. - Labs CBC & Chem 7: 09/30/18 08:03 09/30/18 08:03 Labs: Abnormal Lab Results - Last 24 Hours (Table) 09/30/18 09/30/18 Range/Units 08:03 08:03 RBC 2.66 L (3.80-5.40) m/uL Hgb 8.1 L (11.4-16.0) gm/dL Hct 25.5 L (34.0-46.0) % Neutrophils # 8.2 H (1.3-7.7) k/uL Sodium 136 L (137-145) mmol/L Chloride 111 H (98-107) mmol/L Carbon Dioxide 19 L (22-30) mmol/L BUN 6 L (7-17) mg/dL Total Bilirubin 1.4 H (0.2-1.3) mg/dL Alkaline Phosphatase 129 H (38-126) U/L Total Protein 5.1 L (6.3-8.2) g/dL Albumin 2.6 L (3.5-5.0) g/dL Microbiology - Last 24 Hours (Table) 09/28/18 20:00 Urine Culture - Preliminary Urine,Voided Group D Enterococcus Assessment and Plan Assessment: Postoperative day #4 status-post L2-3 L3-4 L4-5 and L5-S1 minimally invasive posterior lateral decompression and fusion, L3-4 and L4-5 transforaminal lumbar interbody fusion Plan: - Continue physical therapy to increase ambulation, mobilization. - Continue pain control with IV and oral medications. Decrease use of IV Dilaudid and transition to oral Dilaudid as tolerated. Patient is unable to take acetaminophen due to abnormal liver function. - Appreciate internal medicine consult for perioperative medical management. - Plan on discharge tomorrow home with home health services, pending internal medicine clearance. - Follow-up with Jalil Gamez PA-C or Dr. Ho Cruz at [facility] in 2-3 weeks following discharge.
[2018-09-30 15:24] VITALS: BMI 23.3
[2018-09-30] MEDS: RALOXIFENE 60 MG TAB PO SCH (20:19)
[2018-10-01] MEDS: HYDROmorphone 2 MG TAB PO PRN ×2 (03:58→12:47)
[2018-10-01] MEDS: LEVOTHYROXINE 75 MCG TAB PO SCH (05:48)
[2018-10-01 07:32] LABS: Basophils % (A) 0 %; Eosinophils # (A) 0.4 k/uL (0-0.7); Eosinophils % (A) 5 %; HCT 26.5 % (34.0-46.0); HGB 8.3 gm/dL (11.4-16.0); Hypochromasia Slight; Lymphocytes # (A) 1.7 k/uL (1.0-4.8); Lymphocytes % (A) 20 %; MCH 29.8 pg (25.0-35.0); MCHC 31.5 g/dL (31.0-37.0); MCV 94.7 fL (80.0-100.0); Mean Platelet Volume 7.1; Monocytes # (A) 0.4 k/uL (0-1.0); Monocytes % (A) 5 %; Neutrophils # (A) 5.8 k/uL (1.3-7.7); Neutrophils % (A) 68 %; Platelet Count 234 k/uL (150-450); RBC 2.79 m/uL (3.80-5.40); RDW 13.9 % (11.5-15.5); WBC 8.5 k/uL (3.8-10.6)
[2018-10-01 07:42] VITALS: BP 102/66; PULSE 87; RESP 17; TEMP 98.5
[2018-10-01] MEDS: TOPIRAMATE 100 MG TAB PO SCH (08:43)
[2018-10-01] MEDS: PANTOPRAZOLE 40 MG TABLET PO SCH (08:43)
[2018-10-01] MEDS: URSODIOL 300 MG CAP PO SCH (08:43)
[2018-10-01] MEDS: FERROUS SULFATE 325 MG TAB PO SCH (08:43)
[2018-10-01] MEDS: SENNOSIDES-DOCUSATE SODIUM 1 EACH TAB PO SCH (08:43)
[2018-10-01] MEDS: DULoxetine HCL 30 MG CAPSULE.DR PO SCH (08:43)
[2018-10-01] MEDS: GABAPENTIN 300 MG CAP PO SCH (08:43)
[2018-10-01] MEDS: ATORVASTATIN 20 MG TAB PO SCH (08:43)
[2018-10-01] MEDS: FLUoxetine HCL 20 MG CAP PO SCH (08:44)
[2018-10-01] MEDS: MONTELUKAST 10 MG TAB PO SCH (08:44)
--- NOTE | 2018-10-01 09:06 | P.DS ---
Providers Date of admission: 09/26/18 06:26 Expected date of discharge: 10/01/18 Attending physician: Stephanie Cruz Consults: 09/26/18 12:09 Consult Physician Routine Consulting Provider: Hakan Steinberg Consult Reason/Comments: Medical management Do you want consulting provider notified?: Yes Primary care physician: Kate Figueroa - Discharge Diagnosis(es) (1) Status post lumbar spinal fusion Current Visit: Yes Status: Acute (2) Degenerative scoliosis Current Visit: Yes Status: Acute (3) Lumbar back pain with radiculopathy affecting lower extremity Current Visit: Yes Status: Acute (4) Lumbar degenerative disc disease Current Visit: Yes Status: Acute (5) History of liver disease Current Visit: Yes Status: Acute (6) Hyperlipidemia Current Visit: Yes Status: Acute (7) History of hypoglycemia Current Visit: Yes Status: Acute (8) History of hypothyroidism Current Visit: Yes Status: Acute (9) Spondylolisthesis, lumbar region Current Visit: Yes Status: Acute Hospital Course: This is a pleasant 58-year-old female who presented with degenerative scoliosis, spondylolisthesis, lumbar spinal stenosis, lumbar degenerative disc disease, low back pain with lower extremity radiculopathy who failed outpatient conservative therapy. She was admitted for and L2-S1 minimally invasive posterior lateral decompression and fusion with transforaminal lumbar interbody fusion at L3-4 and L4-5. Patient had been progressing quite slowly postoperatively. She is known to have liver disease and is unable to take acetaminophen. Her pain initially was controlled with a combination of oral and IV Dilaudid. She has been able to transition to oral Dilaudid. She has had some improvement over the weekend. She has been able to ambulate to the restroom and some small ambulation into the hallway. She was originally planning for discharge to [facility] rehabilitation facility but has been declined by her insurance. She does not wish to go to an other rehabilitation facility. She is going to be discharged home with home health services. She does feel she is ready for discharge home today. He does continue to have pain at her surgical sites. She has some aching pain over the anterior thighs. She's been eating and voiding without difficulty. Condition on day of discharge stable. Patient was cleared preoperatively for surgery by Dr. Figueroa. Patient currently denies any nausea, vomiting, fever, or chills. Patient is eating and voiding freely without difficulty. Patient may shower Tegaderm dressing intact. Patient may remove Tegaderm dressing in 2 days and shower without a dressing at that time. Patient should keep Steri-Strips intact and allow them to fall off naturally. Patient should refrain from driving until at least after their first follow-up appointment in the office. Patient should avoid excessive bending, lifting, and twisting; no lifting greater than 10 pounds. Patient will be cleared for discharge from an orthopedic spine standpoint pending clearance by medicine. Patient had been receiving iron per medicine after her acute operative blood loss. MAPS has been reviewed today, 10/01/2018, with an Overall Overdose Risk Score of 250 within narcotic score of 240. An "Opiod Start Talking" Forn has been signed by the patient and myself in place in the patient's chart. A prescription has been written for oral Dilaudid 2 mg take 1 tablet every 6 hours as needed for pain, dispensed #28. Patient has been taking Dilaudid doing her admission to the hospital without difficulty. Patient may resume other previously prescribed home medications while avoiding anti-inflammatories over the next 6 weeks postoperatively, including Celebrex. Physical Exam on day of discharge: Patient is awake, alert, and oriented 3 Vital signs stable Good chest excursion with deep inspiration and expiration Abdomen soft nontender No signs or symptoms of DVT; no calf pain Extensor hallucis longus, plantarflexion, and dorsiflexion positive sustained bilateral lower extremities Incision is clean, dry, and intact; no erythema, purulence, or signs of infection Tegaderm dressing and non-stick Telfa intact Procedures: L2-3, L3-4, L4-5, and L5-S1 minimally invasive posterior lateral decompression and fusion with L3-4 and L4-5 transforaminal lumbar interbody fusion Patient Condition at Discharge: Stable Plan - Discharge Summary Discharge Rx Participant: No New Discharge Prescriptions: New HYDROmorphone [Dilaudid] 2 mg PO Q6H PRN 7 Days #28 tab PRN Reason: Pain No Action DULoxetine HCL [Cymbalta] 30 mg PO BID Celecoxib [CeleBREX] 200 mg PO DAILY Pantoprazole Sodium [Protonix] 40 mg PO QAM Montelukast Sodium [Singulair] 10 mg PO DAILY Levothyroxine Sodium [Synthroid] 75 mcg PO DAILY FLUoxetine HCL [PROzac] 40 mg PO DAILY Atorvastatin Calcium [Lipitor] 20 mg PO MOWEFR Temazepam [Restoril] 30 mg PO HS Raloxifene [Evista] 60 mg PO HS Gabapentin [Neurontin] 600 mg PO BID Topiramate [Topamax] 100 mg PO BID Ursodiol [Actigall] 300 mg PO BID Ergocalciferol [Vitamin D2] 50,000 unit PO TH Cannabidiol (Cbd) Extract [Epidiolex] 1 applicate PO DIRECTED PRN PRN Reason: Pain Discharge Medication List Atorvastatin Calcium [Lipitor] 20 mg PO MOWEFR 09/19/18 [History] Cannabidiol (Cbd) Extract [Epidiolex] 1 applicate PO DIRECTED PRN 09/19/18 [History] Celecoxib [CeleBREX] 200 mg PO DAILY 09/19/18 [History] DULoxetine HCL [Cymbalta] 30 mg PO BID 09/19/18 [History] Ergocalciferol [Vitamin D2] 50,000 unit PO TH 09/19/18 [History] FLUoxetine HCL [PROzac] 40 mg PO DAILY 09/19/18 [History] Gabapentin [Neurontin] 600 mg PO BID 09/19/18 [History] Levothyroxine Sodium [Synthroid] 75 mcg PO DAILY 09/19/18 [History] Montelukast Sodium [Singulair] 10 mg PO DAILY 09/19/18 [History] Pantoprazole Sodium [Protonix] 40 mg PO QAM 09/19/18 [History] Raloxifene [Evista] 60 mg PO HS 09/19/18 [History] Temazepam [Restoril] 30 mg PO HS 09/19/18 [History] Topiramate [Topamax] 100 mg PO BID 09/19/18 [History] Ursodiol [Actigall] 300 mg PO BID 09/19/18 [History] HYDROmorphone [Dilaudid] 2 mg PO Q6H PRN 7 Days #28 tab 10/01/18 [Rx] Follow up Appointment(s)/Referral(s): Emory Gamez, ALFREDA [PHYSICIAN SWIMMING POOL SERVICER] - 10/12/18 8:00 am (Patient may follow-up with Emory Gamez PA-C or Dr. Ho Pasia at [facility] in 2-3 weeks following discharge. ) Activity/Diet/Wound Care/Special Instructions: *Home Care: [facility] - [phone] 1. Patient may shower with Tegaderm dressing intact. 2. Patient may remove Tegaderm dressing in 2 days and shower without a dressing at that time. 3. Patient should keep Steri-Strips intact and allow them to fall off naturally. 4. Patient should refrain from driving until at least after their first follow- up appointment in the office. 5. Patient should avoid excessive bending, twisting, and lifting; no lifting greater than 10 pounds 6. Take medications as prescribed 7. Do not soak in tub Discharge Disposition: HOME WITH HOME HEALTH SERVICES
[2018-10-01] MEDS: SODIUM CHLORIDE 0.9% 1,000 ML IV SCH (11:25)
--- NOTE | 2018-10-01 14:02 | P.PN ---
Subjective Progress Note Date: 10/01/18 This is a 58-year-old female patient of Dr. Figueroa. Patient presented for an elective laminectomy and decompression with bilateral foraminotomies L2 to L3 and L3 to L4 and L4-L5. minimally invasive posterior lateral decompression and facet fusion of L2 to L3 L3 to L4 and L4 to L5 and fusion of L3 to L4 and L4 to L5. Patient has past medical history of degenerative scoliosis with spinal lithiasis and spinal stenosis. Additional medical history includes GERD, hyperlipidemia, liver disease, see arthritis, hypothyroidism, migraines, hiatal hernia and anxiety. At this time patient remains very sleepy from sedation. Patient does respond falls back to sleep. Patient denies any chest pain or shortness breath. Patient denies nausea vomiting diarrhea. Patient denies any urinary burning or frequency. On 09/27/2018 patient is awake and alert 3. Patient did have low blood pressure yesterday requiring 500 mL bolus. Pressure remains low but systolic in the 90s. Patient also having low-grade temps 99.8. Patient is complaining of cough will order urinary analysis and chest x-ray to rule out infection. At this time patient denies any chest pain or shortness of breath. Patient denies nausea vomiting or diarrhea. Patient denies any urinary burning or frequency. hgb low at 8.9 will order iron studies On 09/28/2018 patient awake and alert 3. Patient still having some increased back pain. Patient's hemoglobin low at 7.8. Iron studies low. Ferrous sulfate added. At this time patient denies any chest pain or shortness breath. Patient denies nausea vomiting or diarrhea. Patient denies any urinary burning or frequency. On 09/29/2018 patient is alert and oriented 3 complaining of back pain and generalized weakness otherwise no complaints there is no fever or chills no he adache or dizziness no chest pain no shortness of breath no cough no nausea or vomiting no abdominal pain no diarrhea no burning with urination no frequency or urgency there is no hematuria and no blood in the stools. Hemoglobin today is down to 7.4 potassium is down to 3.2 albumin level is down to 2.1 On 09/30/2018 patient was seen and examined on the medical floor she is alert and oriented 3 in no distress she is feeling better, back pain and generalized weakness has improved since yesterday, otherwise she denies any complaints there is no fever or chills no headache or dizziness no chest pain no shortness of breath no cough no nausea or vomiting no abdominal pain no diarrhea and no urin angelo symptoms. Laboratory data has also improved since yesterday, hemoglobin is up to 8.1 potassium is up to normal 4.0 and albumin is up to 2.6 On 10/01/2018 she is alert and oriented 3. Patient planning to be discharged home today. Hemoglobin improving to 8.3. Patient's urine culture growing enterococcus fecaliths. Will DC patient on Augmentin for 7 days for urinary tract infection. At this time patient denies chest pain or shortness breath. Patient denies nausea vomiting or diarrhea. Patient denies any urinary burning or frequency. Objective - Vital Signs Vital signs: Vital Signs Temp 98.5 F 10/01/18 07:00 Pulse 87 10/01/18 07:00 Resp 17 10/01/18 07:00 BP 102/66 10/01/18 07:00 Pulse Ox 99 10/01/18 07:00 Intake & Output 09/30/18 10/01/18 10/01/18 18:59 06:59 18:59 Intake Total 2237 Balance 2237 Weight 59.874 kg Intake: Oral 2237 Other: # Voids 1 2 - Exam Head normocephalic Neck supple Lungs clear to auscultation bilaterally no wheezing or crackles Heart regular rate and rhythm S1-S2, no rub or gallop Abdomen is soft nontender nondistended positive bowel sounds no hepatosplenomegaly Extremities no edema Neuro alert and orientated to 3. - Labs CBC & Chem 7: 10/01/18 07:08 09/30/18 08:03 Labs: Abnormal Lab Results - Last 24 Hours (Table) 10/01/18 Range/Units 07:08 RBC 2.79 L (3.80-5.40) m/uL Hgb 8.3 L (11.4-16.0) gm/dL Hct 26.5 L (34.0-46.0) % Microbiology - Last 24 Hours (Table) 09/28/18 20:00 Urine Culture - Final Urine,Voided Enterococcus faecalis Assessment and Plan Assessment: 1. Status post minimally invasive posterior lateral decompression fusion and transforaminal lumbar interbody fusion L2-L3, L3-L4, L4-L5 with Dr. Cruz. Discharge per orthopedic services 2. History of GERD 4. History of hyperlipidemia 5. History of liver disease 6. History of osteoarthritis 7. History of hypothyroidism 8. History of migraines 9. History of anxiety 10. Hypotensive. Patient received 500 mL bolus. We'll continue to monitor. Resolved 11. Acute expected blood loss anemia. Hemoglobin 7.8. started on ferrous sulfate 12. Urinary tract infection. Patient having temp of 99.8. UA showing trace amount of leukocyte Estrace. Chest x-ray negative. Urine culture growing enterococcus fecaliths. Patient has remained afebrile with discharge patient on Augmentin for 1 week. Thank you for this consultation we'll continue to follow patient closely throughout stay Planning for discharge today per orthopedic services. Patient will be discharged home with home health care I performed an examination of the patient and discussed their management with the Nurse Practitioner. I have reviewed the Nurse Practitioner's notes and agree with the documented findings and plan of care
[2018-10-01] MEDS ORDERED: AMOXIC-POT CLAV 500-125 MG 1 EACH TAB PO SCH (21:00)
== END 2018-10-01 13:19 | disposition home health service (06) | DRG 454 ==
LOC: 2ORMAIN 06:26 → 4SSUR 14:06
PROVIDERS: ADMIT Orthopaedic Surgery Orthopaedic Surgery of the Spine; ATTEND Orthopaedic Surgery Orthopaedic Surgery of the Spine
PROC: 0SG1071 Fusion of 2 or more Lumbar Vertebral Joints with Autologous Tissue Substitute, Posterior Approach, Posterior Column, Open Approach (ICD-10-PCS; 2018-09-26)
PROC: 0ST20ZZ Resection of Lumbar Vertebral Disc, Open Approach (ICD-10-PCS; 2018-09-26)
PROC: 0SG307J Fusion of Lumbosacral Joint with Autologous Tissue Substitute, Posterior Approach, Anterior Column, Open Approach (ICD-10-PCS; 2018-09-26)
PROC: 0SG007J Fusion of Lumbar Vertebral Joint with Autologous Tissue Substitute, Posterior Approach, Anterior Column, Open Approach (ICD-10-PCS; 2018-09-26)
PROC: 30253N0 (ICD-10-PCS; 2018-09-26)
PROC: 07DS3ZZ Extraction of Vertebral Bone Marrow, Percutaneous Approach (ICD-10-PCS; 2018-09-26)
PROC: 4A11X4G Monitoring of Peripheral Nervous Electrical Activity, Intraoperative, External Approach (ICD-10-PCS; 2018-09-26)
PROC: 0SG10AJ Fusion of 2 or more Lumbar Vertebral Joints with Interbody Fusion Device, Posterior Approach, Anterior Column, Open Approach (ICD-10-PCS; principal; 2018-09-26 07:30)
DX: M51.16 Intervertebral disc disorders with radiculopathy, lumbar region (principal); D62 Acute posthemorrhagic anemia; T83.511A Infection and inflammatory reaction due to indwelling urethral catheter, initial encounter; N39.0 Urinary tract infection, site not specified; I95.9 Hypotension, unspecified; K74.3 Primary biliary cirrhosis; M41.86 Other forms of scoliosis, lumbar region; B95.2 Enterococcus as the cause of diseases classified elsewhere; M48.062 Spinal stenosis, lumbar region with neurogenic claudication; M51.17 Intervertebral disc disorders with radiculopathy, lumbosacral region; M43.17 Spondylolisthesis, lumbosacral region; M43.16 Spondylolisthesis, lumbar region; E78.5 Hyperlipidemia, unspecified; E03.9 Hypothyroidism, unspecified; M19.90 Unspecified osteoarthritis, unspecified site; K21.9 Gastro-esophageal reflux disease without esophagitis; K44.9 Diaphragmatic hernia without obstruction or gangrene; G43.909 Migraine, unspecified, not intractable, without status migrainosus; F41.9 Anxiety disorder, unspecified; Z79.1 Long term (current) use of non-steroidal anti-inflammatories (NSAID); Z79.890 Hormone replacement therapy; Z79.810 Long term (current) use of selective estrogen receptor modulators (SERMs); Z79.899 Other long term (current) drug therapy; Z87.891 Personal history of nicotine dependence; Z90.49 Acquired absence of other specified parts of digestive tract; Z98.890 Other specified postprocedural states; Z90.710 Acquired absence of both cervix and uterus; Z88.6 Allergy status to analgesic agent; Z88.5 Allergy status to narcotic agent; Z86.39 Personal history of other endocrine, nutritional and metabolic disease; Y84.6 Urinary catheterization as the cause of abnormal reaction of the patient, or of later complication, without mention of misadventure at the time of the procedure; Y92.230 Patient room in hospital as the place of occurrence of the external cause
CPT/HCPCS: 36415; 71046; 72100; 80053; 81001; 82728; 83540; 83550; 84132; 85025; 85610; 85730; 86850; 86891; 86900; 86901; 87077; 87086; 87186; 93005

== ENCOUNTER 2020-01-02 18:29 | Observation (INO) | payer OTHER ==
[2020-01-02 19:07] LABS: Basophils # (A) 0.1 k/uL (0-0.2); Basophils % (A) 1 %; Eosinophils # (A) 0.2 k/uL (0-0.7); Eosinophils % (A) 2 %; HCT 39.9 % (34.0-46.0); HGB 12.4 gm/dL (11.4-16.0); Lymphocytes # (A) 4.3 k/uL (1.0-4.8); Lymphocytes % (A) 35 %; MCH 29.5 pg (25.0-35.0); MCV 95.4 fL (80.0-100.0); Mean Platelet Volume 7.2; Monocytes # (A) 0.8 k/uL (0-1.0); Monocytes % (A) 7 %; Neutrophils # (A) 6.7 k/uL (1.3-7.7); Neutrophils % (A) 55 %; Platelet Count 295 k/uL (150-450); RBC 4.18 m/uL (3.80-5.40); RDW 13.7 % (11.5-15.5); WBC 12.2 k/uL (3.8-10.6)
[2020-01-02 19:15] LABS: Albumin 4.1 g/dL (3.5-5.0); Calcium 8.9 mg/dL (8.4-10.2); Magnesium 1.9 mg/dL (1.6-2.3); Potassium 3.8 mmol/L (3.5-5.1); Total Bilirubin 0.4 mg/dL (0.2-1.3); Total Protein 6.8 g/dL (6.3-8.2)
[2020-01-02 19:16] LABS: INR 0.9 (<1.2); Partial Thromboplastin Time 22.6 sec (22.0-30.0); Prothrombin Time 9.6 sec (9.0-12.0)
--- NOTE | 2020-01-02 19:16 | XR ---
EXAMINATION: XR chest 2V DATE AND TIME: 01/02/2020 7:06 PM CLINICAL INDICATION: Left-sided chest pain radiating to left arm and face TECHNIQUE: Departmental protocol COMPARISON: 09/27/2018 FINDINGS: The lungs are clear. The pleural spaces are negative. The cardiac silhouette is not enlarged. The remainder of the mediastinal silhouette is unremarkable. The skeletal structures and soft tissues are negative for acute findings. IMPRESSION: No acute radiographic process.
[2020-01-02] MEDS ORDERED: RX INFO: IV CONTRAST WAS GIVEN 1 EACH MISC MISCELLANE PRN (19:23)
--- NOTE | 2020-01-02 19:39 | ED ---
Chest Pain HPI - General Chief Complaint: Chest Pain Stated Complaint: Chest pain Time Seen by Provider: 01/02/20 18:40 Source: patient Mode of arrival: ambulatory Limitations: no limitations - History of Present Illness Initial Comments: Patient is a 59-year-old female with past history of thyroid disorder who presents to the emergency room with reported chest pain. She reports that her pain started yesterday. Is located over the left side of her chest with radiation to her left jaw and left arm. Reports numbness and tingling in the left side of face as well as her left arm. Denies any unilateral numbness or weakness. Denies any previous history of cardiac disease. Has not had a stress test in several years. She denies any associated shortness of breath, cough or hemoptysis. No ripping or tearing sensation to her back. Denies nausea, vomiting or diaphoresis. Pain is intermittent. Not currently present upon hospital arrival. Denies exertional chest pain. No fevers or chills. No other alleviating, precipitating or modifying factors - Related Data Home Medications Medication Instructions Recorded Confirmed Atorvastatin Calcium [Lipitor] 20 mg PO MOWEFR@0900 09/19/18 01/02/20 Ergocalciferol [Vitamin D2 50,000 unit PO TH 09/19/18 01/02/20 (DRISDOL)] Gabapentin [Neurontin] 600 mg PO TID 09/19/18 01/02/20 Levothyroxine Sodium [Synthroid] 75 mcg PO DAILY 09/19/18 01/02/20 Montelukast Sodium [Singulair] 10 mg PO DAILY 09/19/18 01/02/20 Pantoprazole Sodium [Protonix] 40 mg PO DAILY 09/19/18 01/02/20 Raloxifene [Evista] 60 mg PO HS 09/19/18 01/02/20 Temazepam [Restoril] 30 mg PO HS 09/19/18 01/02/20 Topiramate [Topamax] 100 mg PO BID 09/19/18 01/02/20 ursodioL [Actigall] 300 mg PO BID 09/19/18 01/02/20 Celecoxib [CeleBREX] 200 mg PO HS 01/02/20 01/02/20 DULoxetine HCL [Cymbalta] 30 mg PO DAILY 01/02/20 01/02/20 FLUoxetine HCL [PROzac] 60 mg PO DAILY 01/02/20 01/02/20 predniSONE See Taper PO DAILY 01/02/20 01/02/20 Allergies Allergy/AdvReac Type Severity Reaction Status Date / Time acetaminophen [From Tylenol] AdvReac can not Verified 01/02/20 20:54 take due to liver disease codeine AdvReac Abdominal Verified 01/02/20 20:54 Pain hydrocodone AdvReac Abdominal Verified 01/02/20 20:54 Pain morphine AdvReac Abdominal Verified 01/02/20 20:54 Pain Review of Systems ROS Statement: Those systems with pertinent positive or pertinent negative responses have been documented in the HPI. ROS Other: All systems not noted in ROS Statement are negative. EKG Findings - EKG Comments: EKG Findings:: EKG done at 1901 demonstrates normal sinus rhythm with a ventricular rate of 71. AR interval 132. QRS 86. QTC of 465. No acute ST segment elevations or depressions concerning for ischemic changes Past Medical History Past Medical History: GERD/Reflux, Hyperlipidemia, Liver Disease, Osteoarthritis (OA), Thyroid Disorder Additional Past Medical History / Comment(s): primary biliary cirrhosis of liver, migraines, hiatal hernia, hypglycemia History of Any Multi-Drug Resistant Organisms: None Reported Past Surgical History: Back Surgery, Bladder Surgery, Cholecystectomy, Hysterectomy, Orthopedic Surgery Additional Past Surgical History / Comment(s): rt foot bunionectomy, arthroscopy rt knee, boone elbow surgery for spurs/tendons, rt shoulder rotator cuff, liver biopsy, Past Anesthesia/Blood Transfusion Reactions: No Reported Reaction Past Psychological History: Anxiety Smoking Status: Former smoker Past Alcohol Use History: Rare Past Drug Use History: Marijuana - Past Family History Father Family Medical History: Cancer General Exam Limitations: no limitations General appearance: alert, in no apparent distress Head exam: Present: atraumatic, normocephalic, normal inspection Eye exam: Present: normal appearance, PERRL, EOMI. Absent: scleral icterus, conjunctival injection, periorbital swelling ENT exam: Present: normal exam, mucous membranes moist Neck exam: Present: normal inspection. Absent: tenderness, meningismus, lymphadenopathy Respiratory exam: Present: normal lung sounds bilaterally. Absent: respiratory distress, wheezes, rales, rhonchi, stridor Cardiovascular Exam: Present: regular rate, normal rhythm, normal heart sounds. Absent: systolic murmur, diastolic murmur, rubs, gallop, clicks GI/Abdominal exam: Present: soft, normal bowel sounds. Absent: distended, tenderness, guarding, rebound, rigid Extremities exam: Present: normal inspection, full ROM, normal capillary refill. Absent: tenderness, pedal edema, joint swelling, calf tenderness Back exam: Present: normal inspection Neurological exam: Present: alert, oriented X3, CN II-XII intact Psychiatric exam: Present: normal affect, normal mood Skin exam: Present: warm, dry, intact, normal color. Absent: rash Course Vital Signs 01/02/20 01/02/20 01/02/20 18:37 18:50 21:00 Temperature 98.1 F 97.7 F Pulse Rate 80 68 Pulse Rate [ 80 Cat Skinner ] Respiratory 18 16 Rate Blood Pressure 124/76 118/66 O2 Sat by Pulse 100 100 Oximetry Chest Pain MDM - MDM Upon arrival the patient is placed in room 16. A thorough history and physical exam was performed. Patient is placed on continuous pulse ox and cardiac monitoring. A 12-lead EKG was performed. Laboratory studies were conducted. Because of the patient's reported left-sided facial tingling, left arm tingling and chest pain he did perform a CT of the patient's head as well as a CT the patient's chest. Laboratory studies remarkable for sodium of 132. Troponin is negative. CT of the patient's chest demonstrates an incidental 5 mm pulmonary nodule in the right upper lobe. CT of the patient's brain demonstrates no acute process. The patient is reevaluated and continues to remain pain-free. He did recommend hospital admission order trend her troponins for which the patient did agree to. I discussed the case with Dr. Fagan who accepted admission for the patient. Patient was then taken to the floor in stable condition Disposition Clinical Impression: Chest pain Disposition: ADMITTED IP TO THIS HOSP Condition: Stable Is patient prescribed a controlled substance at d/c from ED?: No Decision to Admit Reason: Admit from EC Decision Date: 01/02/20 Decision Time: 21:02
--- NOTE | 2020-01-02 20:32 | CT ---
EXAMINATION: CT brain wo con DATE AND TIME: 01/02/2020 7:55 PM CLINICAL INDICATION: PHH; cp, left sided facial tingling TECHNIQUE: Standard departmental protocol DLP 1086.4 mGy-cm COMPARISON: None. FINDINGS: The calvarium is intact. There is no intracranial hemorrhage. There is no intracranial mass or mass effect. No definite new intra-axial or extra-axial attenuation defect. The paranasal sinuses, middle ear cavities, and mastoid sinus air cells are clear. The orbits are unremarkable. IMPRESSION: NO ACUTE PROCESS.
--- NOTE | 2020-01-02 20:51 | CT ---
EXAMINATION TYPE: CT chest w con DATE OF EXAM: 01/02/2020 COMPARISON: None HISTORY: Chest pain radiating to LT arm since yesterday. No cardiac hx.0 CT DLP: 314.2 mGycm Automated exposure control for dose reduction was used. CONTRAST: CT scan of the chest is performed with IV Contrast, patient injected with 100 mL of Isovue 300. FINDINGS: LUNGS: The lungs are negative for acute processes. However, there is an ill-defined 5 mm opacity high in the right upper lobe, image 13/48. Would suggest 6 month follow-up CT recharacterization. There i s no pleural effusion or pneumothorax seen. The tracheobronchial tree is patent. MEDIASTINUM: There is no cardiomegaly or pericardial effusion. No hilar or mediastinal adenopathy. OTHER: No additional significant abnormality is seen. IMPRESSION: 1. No acute process. 2. Incidental 5 mm pulmonary nodule right upper lobe; 6 month follow-up CT recommended.
[2020-01-02] MEDS ORDERED: ASPIRIN 325 MG TAB PO STA (21:00)
[2020-01-02] MEDS ORDERED: NALOXONE 0.4 MG/ML 1 ML VIAL IV PRN (21:02)
[2020-01-02] MEDS ORDERED: ATORVASTATIN 40 MG TAB PO SCH (22:30)
[2020-01-02] MEDS ORDERED: TEMAZEPAM 15 MG CAP PO SCH (23:15)
[2020-01-02] MEDS: GABAPENTIN 300 MG CAP PO SCH (23:19)
[2020-01-03] MEDS ORDERED: LEVOTHYROXINE 75 MCG TAB PO SCH (06:30)
[2020-01-03 06:39] LABS: Basophils % (A) 0 %; Eosinophils % (A) 0 %; HCT 38.6 % (34.0-46.0); HGB 11.6 gm/dL (11.4-16.0); Hypochromasia Slight; Lymphocytes # (A) 2.9 k/uL (1.0-4.8); Lymphocytes % (A) 29 %; MCH 29.5 pg (25.0-35.0); MCHC 30.1 g/dL (31.0-37.0); Monocytes # (A) 0.5 k/uL (0-1.0); Monocytes % (A) 5 %; Neutrophils # (A) 6.6 k/uL (1.3-7.7); Neutrophils % (A) 65 %; Platelet Count 259 k/uL (150-450); RBC 3.94 m/uL (3.80-5.40); RDW 13.6 % (11.5-15.5); WBC 10.2 k/uL (3.8-10.6)
[2020-01-03 06:59] LABS: Calcium 9.1 mg/dL (8.4-10.2); Potassium 4.8 mmol/L (3.5-5.1)
[2020-01-03] MEDS ORDERED: TOPIRAMATE 100 MG TAB PO SCH (09:00)
[2020-01-03] MEDS ORDERED: GABAPENTIN 300 MG CAP PO SCH (09:00)
[2020-01-03] MEDS ORDERED: DULoxetine HCL 30 MG CAPSULE.DR PO SCH (09:00)
[2020-01-03] MEDS ORDERED: PANTOPRAZOLE 40 MG TABLET PO SCH (09:00)
[2020-01-03] MEDS ORDERED: FLUoxetine HCL 20 MG CAP PO SCH (09:00)
[2020-01-03] MEDS ORDERED: MONTELUKAST 10 MG TAB PO SCH (09:00)
[2020-01-03] MEDS ORDERED: predniSONE 10 MG TAB PO SCH (09:30)
[2020-01-03] MEDS ORDERED: ursodioL 300 MG CAP PO SCH (09:30)
[2020-01-03] MEDS ORDERED: REGADENOSON 0.4 MG/5 ML SYRINGE IV ONE (10:04)
[2020-01-03] MEDS ORDERED: CAFFEINE CITRATE 60 MG/3 ML VIAL IV PRN (10:04)
[2020-01-03] MEDS ORDERED: AMINOPHYLLINE 500 MG/20 ML VIAL IV PRN (10:04)
--- NOTE | 2020-01-03 10:15 | P.CRDCN ---
History of Present Illness Consult date: 01/03/20 History of present illness: HISTORY OF PRESENTING ILLNESS This is a pleasant 59-year-old female with history of anxiety, depression, hyperlipidemia, GERD, liver disease, hypothyroidism and headaches who presents secondary to episodes of left-sided chest pain with numbness going into her left arm with associated left arm weakness. She admits she was not doing any activ ity when she noticed left-sided chest pain with headache and left arm numbness and tingling with some weakness. She admits her symptoms have improved. She denies any alleviating or exacerbating symptoms. She denies seen a visitor service assistant in the past. She denies any history of heart attack, stents or heart catheterization. She believes she had a stress test 5-10 years in the past. She denies any associated shortness breath, lightheadedness, nausea or diaphoresis. DIAGNOSTICS EKG reveals normal sinus rhythm, normal EKG. A chest CT thorax with IV contrast was performed which showed no acute process and incidental pulmonary nodule Laboratory reviewed, white blood cell count 12.2, sodium 132, bicarb 17, creatinine 0.86. Troponin negative 3 Current cardiac medications include Lipitor 40 mg daily. REVIEW OF SYSTEMS At the time of my exam: CONSTITUTIONAL: Denies fever or chills. CARDIOVASCULAR: + chest pain, no shortness of breath, orthopnea, PND or palpitations. RESPIRATORY: Denies cough. GASTROINTESTINAL: Denies abdominal pain, diarrhea, constipation, nausea or vomiting. MUSCULOSKELETAL: Denies myalgias. NEUROLOGIC: + numbness, +tingling, +weakness. ENDOCRINE: Denies fatigue, weight change, polydipsia or polyurina. GENITOURINARY: Denies burning, hematuria or urgency with micturation. HEMATOLOGIC: Denies history of anemia or bleeding. PHYSICAL EXAMINATION Blood pressure 112/71 heart rate 59 afebrile and maintaining oxygen saturation on room air. CONSTITUTIONAL: No apparent distress. HEENT: Head is normocephalic. Pupils are equal, round. Sclerae anicteric. Mucous membranes of the mouth are moist. No JVD. No carotid bruit. CHEST EXAMINATION: Lungs are clear to auscultation. No chest wall tenderness is noted on palpation or with deep breathing. HEART EXAMINATION: Regular rate and rhythm. S1, S2 heard. No murmurs, gallops or rub. ABDOMEN: Soft, nontender. Positive bowel sounds. EXTREMITIES: 2+ peripheral pulses, no lower extremity edema and no calf tenderness. NEUROLOGIC EXAMINATION: Patient is awake, alert and oriented x3. ASSESSMENT 1. Atypical chest pain with headache and left arm numbness and tingling. Patient had a CT brain which showed no acute process. 2. History of hyperlipidemia 3. Leukocytosis 4. Hyponatremia PLAN Patient with symptoms atypical for cardiac source of pain. More concerning for TIA and symptoms are now improved. CT brain showed no acute process. We will defer neurologic workup to the primary team. May consider outpatient event monitoring if suspicious for TIA. We will check a nuclear stress test to rule out any significant coronary artery disease as well as a 2-D echo to evaluate for LV function. If stress test and echo without significant findings, patient may be discharged from a cardiac standpoint and outpatient follow-up. Past Medical History Past Medical History: GERD/Reflux, Hyperlipidemia, Liver Disease, Osteoarthritis (OA), Thyroid Disorder Additional Past Medical History / Comment(s): primary biliary cirrhosis of liver, migraines, hiatal hernia, hypglycemia History of Any Multi-Drug Resistant Organisms: None Reported Past Surgical History: Back Surgery, Bladder Surgery, Cholecystectomy, Hysterectomy, Orthopedic Surgery Additional Past Surgical History / Comment(s): rt foot bunionectomy, arthroscopy rt knee, boone elbow surgery for spurs/tendons, rt shoulder rotator cuff, liver biopsy, Past Anesthesia/Blood Transfusion Reactions: No Reported Reaction Past Psychological History: Anxiety Smoking Status: Former smoker Past Alcohol Use History: Rare Past Drug Use History: Marijuana - Past Family History Father Family Medical History: Cancer Medications and Allergies Home Medications Medication Instructions Recorded Confirmed Type Atorvastatin Calcium [Lipitor] 20 mg PO MOWEFR@0900 09/19/18 01/02/20 History Ergocalciferol [Vitamin D2 50,000 unit PO TH 09/19/18 01/02/20 History (DRISDOL)] Gabapentin [Neurontin] 600 mg PO TID 09/19/18 01/02/20 History Levothyroxine Sodium [Synthroid] 75 mcg PO DAILY 09/19/18 01/02/20 History Montelukast Sodium [Singulair] 10 mg PO DAILY 09/19/18 01/02/20 History Pantoprazole Sodium [Protonix] 40 mg PO DAILY 09/19/18 01/02/20 History Raloxifene [Evista] 60 mg PO HS 09/19/18 01/02/20 History Temazepam [Restoril] 30 mg PO HS 09/19/18 01/02/20 History Topiramate [Topamax] 100 mg PO BID 09/19/18 01/02/20 History ursodioL [Actigall] 300 mg PO BID 09/19/18 01/02/20 History Celecoxib [CeleBREX] 200 mg PO HS 01/02/20 01/02/20 History DULoxetine HCL [Cymbalta] 30 mg PO DAILY 01/02/20 01/02/20 History FLUoxetine HCL [PROzac] 60 mg PO DAILY 01/02/20 01/02/20 History predniSONE See Taper PO DAILY 01/02/20 01/02/20 History Allergies Allergy/AdvReac Type Severity Reaction Status Date / Time acetaminophen [From Tylenol] AdvReac can not Verified 01/02/20 20:54 take due to liver disease codeine AdvReac Abdominal Verified 01/02/20 20:54 Pain hydrocodone AdvReac Abdominal Verified 01/02/20 20:54 Pain morphine AdvReac Abdominal Verified 01/02/20 20:54 Pain Physical Exam Vitals: Vital Signs Temp Pulse Pulse Resp BP BP Pulse Ox 01/03/20 08:09 97.9 F 59 L 14 112/71 100 01/03/20 04:22 98 F 59 L 17 98/62 98 01/02/20 21:51 97.8 F 68 17 118/68 99 01/02/20 21:00 97.7 F 68 16 118/66 100 01/02/20 18:50 80 01/02/20 18:37 98.1 F 80 18 124/76 100 Intake and Output 01/02/20 01/03/20 01/03/20 22:59 06:59 14:59 Other: Voiding Method Toilet Toilet Toilet # Voids 2 1 Weight 70.307 kg Results 01/03/20 05:56 01/03/20 05:56 Cardiac Enzymes 01/02/20 01/02/20 01/02/20 Range/Units 18:59 18:59 22:27 AST 35 (14-36) U/L Troponin I <0.012 <0.012 (0.000-0.034) ng/mL 01/03/20 Range/Units 01:17 AST (14-36) U/L Troponin I <0.012 (0.000-0.034) ng/mL Coagulation 01/02/20 Range/Units 18:59 PT 9.6 (9.0-12.0) sec APTT 22.6 (22.0-30.0) sec CBC 01/02/20 01/03/20 Range/Units 18:59 05:56 WBC 12.2 H 10.2 (3.8-10.6) k/uL RBC 4.18 3.94 (3.80-5.40) m/uL Hgb 12.4 11.6 (11.4-16.0) gm/dL Hct 39.9 38.6 (34.0-46.0) % Plt Count 295 259 (150-450) k/uL Comprehensive Metabolic Panel 01/02/20 01/03/20 Range/Units 18:59 05:56 Sodium 132 L 139 (137-145) mmol/L Potassium 3.8 4.8 (3.5-5.1) mmol/L Chloride 104 111 H (98-107) mmol/L Carbon Dioxide 17 L 22 (22-30) mmol/L BUN 12 12 (7-17) mg/dL Creatinine 0.86 0.89 (0.52-1.04) mg/dL Glucose 93 88 (74-99) mg/dL Calcium 8.9 9.1 (8.4-10.2) mg/dL AST 35 (14-36) U/L ALT 33 (4-34) U/L Alkaline Phosphatase 146 H (38-126) U/L Total Protein 6.8 (6.3-8.2) g/dL Albumin 4.1 (3.5-5.0) g/dL Current Medications Generic Name Dose Route Start Last Admin Trade Name Freq PRN Reason Stop Dose Admin Aminophylline 100 mg 01/03/20 10:04 Aminophylline IV ONCE PRN Patient Response Atorvastatin Calcium 40 mg 01/02/20 22:30 01/02/20 23:18 Lipitor PO 40 mg HS PASCALE Administration Caffeine Citrate 60 mg 01/03/20 10:04 Cafcit Inj IV ONCE PRN Patient Response Duloxetine HCl 30 mg 01/03/20 09:00 Cymbalta PO DAILY PASCALE Fluoxetine HCl 60 mg 01/03/20 09:00 Prozac PO DAILY PASCALE Gabapentin 600 mg 01/02/20 23:12 01/02/20 23:19 Neurontin PO 600 mg TID PASCALE Administration Levothyroxine Sodium 75 mcg 01/03/20 06:30 01/03/20 05:36 Synthroid PO 75 mcg DAILY@0630 PASCALE Administration Miscellaneous Information 1 each 01/02/20 19:23 Rx Info: Iv Contrast Was Given MISCELLANE 01/04/20 19:24 DAILY PRN Per Protocol Montelukast Sodium 10 mg 01/03/20 09:00 Singulair PO DAILY PASCALE Naloxone HCl 0.2 mg 01/02/20 21:02 Narcan IV Q2M PRN Opioid Reversal Pantoprazole Sodium 40 mg 01/03/20 09:00 Protonix PO DAILY [facility] Prednisone 10 mg 01/03/20 09:30 PO DAILY PASCALE Raloxifene HCl 60 mg 01/03/20 21:00 Evista PO HS PASCALE Regadenoson 0.4 mg 01/03/20 10:04 Lexiscan IV 01/03/20 10:05 ONCE ONE Temazepam 30 mg 01/02/20 23:15 01/02/20 23:19 Restoril PO 30 mg HS PASCALE Administration Topiramate 100 mg 01/03/20 09:00 Topamax PO BID PASCALE Ursodiol 300 mg 01/03/20 09:30 Actigall PO BID [facility] Intake and Output 01/02/20 01/03/20 01/03/20 22:59 06:59 14:59 Other: Voiding Method Toilet Toilet Toilet # Voids 2 1 Weight 70.307 kg 01/03/20 05:56 01/03/20 05:56
[2020-01-03] MEDS ORDERED: AMINOPHYLLINE 500 MG/20 ML VIAL IV ONE (11:50)
--- NOTE | 2020-01-03 13:03 | NM ---
EXAMINATION TYPE: NM stress lexiscan cardiolite DATE OF EXAM: 01/03/2020 COMPARISON: NONE HISTORY: Chest pain TECHNIQUE: After the intravenous administration of 10.1 mCi Tc 99m Sestamibi - Cardiolite resting SP ECT images acquired 50 minutes post injection. The patient received 0.4mg Lexiscan, 24.9 mCi Tc 99m Sestamibi - Stress images obtained [address] injection FINDINGS: Review of stress and rest SPECT images demonstrates no distinct perfusion abnormality. Gated analysi s shows normal wall motion with an estimated left ventricular ejection fraction of 55 %. IMPRESSION: No pharmacologically induced scintigraphic evidence for reversible ischemia.
--- NOTE | 2020-01-03 13:07 | P.STRESS ---
- Stress Test Note Stress Test Results/Findings: Exam Performed: NM stress lexiscan cardiolite Exam Date: 01/03/20 Reason for Exam: CHEST PAIN Height: 5 ft 3 in Weight: 70.31 kg Protocol: LEXISCAN CARDIOLITE Stage: N/A Duration of Exercise: N/A Resting Heart Rate: 59 Resting Blood Pressure: 118/61 Maximum Achieved Heart Rate: 86 Maximum Achieved Blood Pressure: 118/61 85% PMHR: 135 100% PMHR: 159 METS: N/A Technologist Comment: Stress Test Results/Findings: At baseline EKG showed sinus rhythm with a heart rate of 59 bpm, no significant ST or T-wave abnormalities. Patient recieved IV infusion of Lexiscan 0.4mg and at peak infusion EKG showed no significant change from baseline. Conclusions: 1. Normal EKG response to Lexiscan infusion 2. Nuclear imaging to be reported separately.
[2020-01-03] MEDS: GABAPENTIN 300 MG CAP PO SCH (13:11)
[2020-01-03 15:52] VITALS: BP 98/64; PULSE 66; RESP 12; TEMP 97.6
--- NOTE | 2020-01-03 17:28 | ECHOF ---
Referral Reason:Chest pain MEASUREMENTS -------- HEIGHT: 160.0 cm WEIGHT: 70.3 kg BP: 112/71 RVIDd: 2.7 cm (< 3.3) IVSd: 1.0 cm (0.6 - 1.1) LVIDd: 4.1 cm (3.9 - 5.3) LVPWd: 1.0 cm (0.6 - 1.1) IVSs: 1.4 cm LVIDs: 2.9 cm LVPWs: 1.5 cm LA Diam: 3.2 cm (2.7 - 3.8) LAESV Index (A-L): 26.08 ml/m Ao Diam: 2.9 cm (2.0 - 3.7) AV Cusp: 2.1 cm (1.5 - 2.6) MV EXCURSION: 18.414 mm (> 18.000) MV EF SLOPE: 138 mm/s (70 - 150) EPSS: 1.5 cm MV E Felipe: 0.91 m/s MV DecT: 203 ms MV A Felipe: 0.53 m/s MV E/A Ratio: 1.71 FINDINGS -------- Sinus rhythm. This was a technically difficult study with suboptimal parasternal views. The left ventricular size is normal. Left ventricular wall thickness is normal. Overall left vent ricular systolic function is normal with, an EF between 60 - 65 %. The right ventricle is normal in size. Normal LA size by volume 22+/-6 ml/m2. The right atrium is normal in size. Interatrial and interventricular septum intact. The aortic valve is trileaflet and appears structurally normal. There is trace to mild mitral regurgitation. The tricuspid valve appears structurally normal. Trace/mild (physiologic) pulmonic regurgitation. The aortic root size is normal. Normal inferior vena cava with normal inspiratory collapse consistent with estimated right atrial pre ssure of 5 mmHg. There is no pericardial effusion. CONCLUSIONS -------- 1. The left ventricular size is normal. 2. Left ventricular wall thickness is normal. 3. Overall left ventricular systolic function is normal with, an EF between 60 - 65 %. 4. There is trace to mild mitral regurgitation. 5. Trace/mild (physiologic) pulmonic regurgitation. 6. There is no pericardial effusion. SHOE PLANNER: AMY Villagomez
[2020-01-03] MEDS ORDERED: TEMAZEPAM 15 MG CAP PO SCH (21:00)
[2020-01-03] MEDS ORDERED: RALOXIFENE 60 MG TAB PO SCH (21:00)
--- NOTE | 2020-01-07 22:48 | P.HPIM ---
History of Present Illness H&P Date: 01/03/20 Chief Complaint: chest pain Kailey Larson is a 59 year old female with PMH of HLD, GERD, liver disease, depression who presents secondary to episodes of left-sided chest pain with numbness going into her left arm with associated left arm weakness. She was not doing any activity when she noticed left-sided chest pain with headache and left arm numbness and tingling with some weakness. States her symptoms lasted a few mins then resolved. She believes she had a stress test 5-10 years in the past. She denies any associated shortness breath, lightheadedness, nausea or diaph oresis. On presentation her vitals and labs were stable, CT chest and head unremarkable. Her symptoms have completely resolved at this time. Review of Systems All systems: negative Constitutional: Denies chills, Denies fever Eyes: denies blurred vision, denies pain Ears, nose, mouth and throat: Denies headache, Denies sore throat Cardiovascular: Reports chest pain, Denies shortness of breath Respiratory: Denies cough Gastrointestinal: Denies abdominal pain, Denies diarrhea, Denies nausea, Denies vomiting Genitourinary: Denies dysuria, Denies hematuria Musculoskeletal: Denies myalgias Integumentary: Denies pruritus, Denies rash Neurological: Denies numbness, Denies weakness Psychiatric: Denies anxiety, Denies depression Endocrine: Denies fatigue, Denies weight change Past Medical History Past Medical History: GERD/Reflux, Hyperlipidemia, Liver Disease, Osteoarthritis (OA), Thyroid Disorder Additional Past Medical History / Comment(s): primary biliary cirrhosis of liver, migraines, hiatal hernia, hypglycemia History of Any Multi-Drug Resistant Organisms: None Reported Past Surgical History: Back Surgery, Bladder Surgery, Cholecystectomy, Hysterectomy, Orthopedic Surgery Additional Past Surgical History / Comment(s): rt foot bunionectomy, arthroscopy rt knee, boone elbow surgery for spurs/tendons, rt shoulder rotator cuff, liver biopsy, Past Anesthesia/Blood Transfusion Reactions: No Reported Reaction Past Psychological History: Anxiety Smoking Status: Former smoker Past Alcohol Use History: Rare Past Drug Use History: Marijuana - Past Family History Father Family Medical History: Cancer Medications and Allergies Home Medications Medication Instructions Recorded Confirmed Type Atorvastatin Calcium [Lipitor] 20 mg PO MOWEFR@0900 09/19/18 01/02/20 History Ergocalciferol [Vitamin D2 50,000 unit PO TH 09/19/18 01/02/20 History (DRISDOL)] Gabapentin [Neurontin] 600 mg PO TID 09/19/18 01/02/20 History Levothyroxine Sodium [Synthroid] 75 mcg PO DAILY 09/19/18 01/02/20 History Montelukast Sodium [Singulair] 10 mg PO DAILY 09/19/18 01/02/20 History Pantoprazole Sodium [Protonix] 40 mg PO DAILY 09/19/18 01/02/20 History Raloxifene [Evista] 60 mg PO HS 09/19/18 01/02/20 History Temazepam [Restoril] 30 mg PO HS 09/19/18 01/02/20 History Topiramate [Topamax] 100 mg PO BID 09/19/18 01/02/20 History ursodioL [Actigall] 300 mg PO BID 09/19/18 01/02/20 History Celecoxib [CeleBREX] 200 mg PO HS 01/02/20 01/02/20 History DULoxetine HCL [Cymbalta] 30 mg PO DAILY 01/02/20 01/02/20 History FLUoxetine HCL [PROzac] 60 mg PO DAILY 01/02/20 01/02/20 History predniSONE See Taper PO DAILY 01/02/20 01/02/20 History Allergies Allergy/AdvReac Type Severity Reaction Status Date / Time acetaminophen [From Tylenol] AdvReac can not Verified 01/02/20 20:54 take due to liver disease codeine AdvReac Abdominal Verified 01/02/20 20:54 Pain hydrocodone AdvReac Abdominal Verified 01/02/20 20:54 Pain morphine AdvReac Abdominal Verified 01/02/20 20:54 Pain Physical Exam Vitals: Vital Signs Temp Pulse Resp BP Pulse Ox 01/03/20 15:50 97.6 F 66 12 98/64 99 01/03/20 08:09 97.9 F 59 L 14 112/71 100 01/03/20 04:22 98 F 59 L 17 98/62 98 01/02/20 21:51 97.8 F 68 17 118/68 99 Intake and Output 01/03/20 01/03/20 01/03/20 06:59 14:59 22:59 Other: Voiding Method Toilet Toilet # Voids 2 1 Weight 70.31 kg General: well nourished, well developed, NAD. Vitals reviewed Eyes: PERRL, EOMI, conjunctiva normal HENT: normocephalic, mucus membranes moist Neck: supple, no JVD Lungs: normal respiratory effort, no wheezes or rales CV: Regular rate and rhythm, no murmur. Peripheral pulses 2+ Abdomen: soft, nondistended, no organomegaly Lymph: no cervical or axillary LAD Skin: warm and dry. Neuro: A&Ox3, normal mood and affect. CN II-XII intact and symmetric. Str 5/5 boone UE and LE Results CBC & Chem 7: 01/03/20 05:56 01/03/20 05:56 Labs: Abnormal Lab Results - Last 24 Hours (Table) 01/03/20 01/03/20 Range/Units 05:56 05:56 MCHC 30.1 L (31.0-37.0) g/dL Chloride 111 H (98-107) mmol/L Thrombosis Risk Factor Assmnt - Choose All That Apply Each Factor Represents 1 point: Obesity (BMI >25) Each Risk Factor Represents 2 Points: Age 61-74 years Other congenital or acquired thrombophilia - If yes, enter type in comment: No Thrombosis Risk Factor Assessment Total Risk Factor Score: 3 Thrombosis Risk Factor Assessment Level: Moderate Risk Assessment and Plan (1) Chest pain Status: Acute Code(s): R07.9 - CHEST PAIN, UNSPECIFIED SNOMED Code(s): 37621366 (2) History of hypoglycemia Status: Acute Code(s): Z86.39 - PERSONAL HISTORY OF ENDO, NUTRITIONAL AND METABOLIC DISEASE SNOMED Code(s): 937870909 (3) History of hypothyroidism Status: Acute Code(s): Z86.39 - PERSONAL HISTORY OF ENDO, NUTRITIONAL AND META BOLIC DISEASE SNOMED Code(s): 753757409 (4) History of liver disease Status: Acute Code(s): Z87.19 - PERSONAL HISTORY OF OTHER DISEASES OF THE DIGESTIVE SYSTEM SNOMED Code(s): 435123692 Plan: 1. Chest pain. ACS ruled out. Cardiology consulted for evaluation. Consider migraine variant 2. Migraine. Continue topamax 3. Depression. Continue prozac 4. Hypothyroidism. Continue synthroid
--- NOTE | 2020-01-07 22:49 | P.DS ---
Providers Date of admission: 01/02/20 21:05 Expected date of discharge: 01/03/20 Attending physician: Remi Figueroa MD Consults: 01/02/20 21:03 Consult Physician Urgent Consulting Provider: [facility] Consult Reason/Comments: acute chest pain, possible acs Do you want consulting provider notified?: Yes Primary care physician: Kate Figueroa - Discharge Diagnosis(es) (1) Chest pain Status: Acute (2) History of hypoglycemia Status: Acute (3) History of hypothyroidism Status: Acute (4) History of liver disease Status: Acute Hospital Course: Kailey Larson is a 59 year old female with PMH of HLD, GERD, liver disease, depression who presents secondary to episodes of left-sided chest pain with numbness going into her left arm with associated left arm weakness. She was not doing any activity when she noticed left-sided chest pain with headache and left arm numbness and tingling with some weakness. States her symptoms lasted a few mins then resolved. She believes she had a stress test 5-10 years in the past. She denies any associated shortness breath, lightheadedness, nausea or diaphoresis. On presentation her vitals and labs were stable, CT chest and head unremarkable. Her symptoms have completely resolved at this time. She was admitted to observation and seen by Cardiology. She underwent a stress test which was negative. Her symptoms did not recur. She is discharged in stable condition and recommended to follow up with her PCP. Patient Condition at Discharge: Stable Plan - Discharge Summary Discharge Rx Participant: No New Discharge Prescriptions: Continue Pantoprazole Sodium [Protonix] 40 mg PO DAILY Montelukast Sodium [Singulair] 10 mg PO DAILY Levothyroxine Sodium [Synthroid] 75 mcg PO DAILY Atorvastatin Calcium [Lipitor] 20 mg PO MOWEFR@0900 Temazepam [Restoril] 30 mg PO HS Raloxifene [Evista] 60 mg PO HS Gabapentin [Neurontin] 600 mg PO TID Topiramate [Topamax] 100 mg PO BID ursodioL [Actigall] 300 mg PO BID Ergocalciferol [Vitamin D2 (DRISDOL)] 50,000 unit PO TH predniSONE See Taper PO DAILY FLUoxetine HCL [PROzac] 60 mg PO DAILY DULoxetine HCL [Cymbalta] 30 mg PO DAILY Celecoxib [CeleBREX] 200 mg PO HS Discharge Medication List Atorvastatin Calcium [Lipitor] 20 mg PO MOWEFR@0900 09/19/18 [History] Ergocalciferol [Vitamin D2 (DRISDOL)] 50,000 unit PO TH 09/19/18 [History] Gabapentin [Neurontin] 600 mg PO TID 09/19/18 [History] Levothyroxine Sodium [Synthroid] 75 mcg PO DAILY 09/19/18 [History] Montelukast Sodium [Singulair] 10 mg PO DAILY 09/19/18 [History] Pantoprazole Sodium [Protonix] 40 mg PO DAILY 09/19/18 [History] Raloxifene [Evista] 60 mg PO HS 09/19/18 [History] Temazepam [Restoril] 30 mg PO HS 09/19/18 [History] Topiramate [Topamax] 100 mg PO BID 09/19/18 [History] ursodioL [Actigall] 300 mg PO BID 09/19/18 [History] Celecoxib [CeleBREX] 200 mg PO HS 01/02/20 [History] DULoxetine HCL [Cymbalta] 30 mg PO DAILY 01/02/20 [History] FLUoxetine HCL [PROzac] 60 mg PO DAILY 01/02/20 [History] predniSONE See Taper PO DAILY 01/02/20 [History] Follow up Appointment(s)/Referral(s): Kate Figueroa DO [Primary Care Provider] - 1-2 days Patient Instructions/Handouts: Chest Pain (GEN) Discharge Disposition: HOME SELF-CARE
== END 2020-01-03 18:05 | disposition home or self-care (01) ==
LOC: EC 18:29 → 3NCARDOBS 21:05
PROVIDERS: ADMIT Family Medicine; ATTEND Family Medicine
DX: R07.89 Other chest pain (principal); R20.0 Anesthesia of skin; R20.2 Paresthesia of skin; R53.1 Weakness; R51 Headache; D72.829 Elevated white blood cell count, unspecified; E87.1 Hypo-osmolality and hyponatremia; E16.2 Hypoglycemia, unspecified; E03.9 Hypothyroidism, unspecified; K74.3 Primary biliary cirrhosis; K21.9 Gastro-esophageal reflux disease without esophagitis; E78.5 Hyperlipidemia, unspecified; M19.90 Unspecified osteoarthritis, unspecified site; G43.909 Migraine, unspecified, not intractable, without status migrainosus; K44.9 Diaphragmatic hernia without obstruction or gangrene; F41.9 Anxiety disorder, unspecified; F32.9 Major depressive disorder, single episode, unspecified; E66.9 Obesity, unspecified; Z68.27 Body mass index [BMI] 27.0-27.9, adult; Z79.899 Other long term (current) drug therapy; Z79.890 Hormone replacement therapy; Z79.810 Long term (current) use of selective estrogen receptor modulators (SERMs); Z79.1 Long term (current) use of non-steroidal anti-inflammatories (NSAID); Z88.5 Allergy status to narcotic agent; Z88.6 Allergy status to analgesic agent; Z98.890 Other specified postprocedural states; Z90.49 Acquired absence of other specified parts of digestive tract; Z90.710 Acquired absence of both cervix and uterus; Z87.39 Personal history of other diseases of the musculoskeletal system and connective tissue; Z87.891 Personal history of nicotine dependence; Z80.9 Family history of malignant neoplasm, unspecified
CPT/HCPCS: 93005 ×2; 99285; 36415; 93017; 93306; 83880; 80053; 80048; 83735; 84484 ×2; 85025 ×2; 85610; 85730; 71046; 70450; 71260; 78452; G0378 ×2; A9500; J0280; J2785; J7512; Q9967

== ENCOUNTER → 2020-01-20 | Outpatient (CLI) | payer OTHER ==
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
== END | disposition home or self-care (01) ==
LOC: NEUROMAIN 07:47
PROVIDERS: ATTEND Family Medicine
DX: G81.90 Hemiplegia, unspecified affecting unspecified side (principal); G51.4 Facial myokymia
CPT/HCPCS: 95816

== ENCOUNTER → 2020-03-06 | Outpatient (CLI) | payer OTHER ==
--- NOTE | 2020-03-06 16:17 | MR ---
EXAMINATION TYPE: MR angio head wo con DATE OF EXAM: 03/06/2020 COMPARISON: NONE HISTORY: Left-sided hemiparesis. Migraine headaches. Family history of aneurysm. TECHNIQUE: Time of flight images focusing on the [place] were performed without contrast.. 2-D and 3-D postprocessing imaging is performed on independent workstation and reviewed. FINDINGS: There is codominant vertebrobasilar system. Vertebral arteries are patent to basilar juncti on. There are hypoplastic bilateral posterior communicating arteries. No significant focal stenosis o r aneurysmal change in the posterior circulation. There is patent anterior communicating artery with tortuous course. There is no significant focal viviana nosis or aneurysmal change in the anterior circulation. IMPRESSION: No aneurysm at level of the [place].
--- NOTE | 2020-03-06 16:39 | MR ---
MR brain without contrast HISTORY: G 81.94 Multiplanar multisequence imaging through the brain Correlation to CT brain 01/02/2020 There is no restricted diffusion. There is no hemorrhage or hydrocephalus. Corpus callosum, pituitary , cervical medullary junction, cerebellopontine angles are normal. There are normal vascular flow voi ds. The orbits show symmetric appearance. Mild inflammatory change present within the ethmoid air rina ls. Scattered periventricular white matter hyperintensities are present on inversion recovery T2-weig hted sequences. Approximately 10 lesions are present. Largest lesion in the right frontal white matte r measures 6 mm. IMPRESSION: Age-related changes of atrophy and probable chronic small vessel ischemia.
== END | disposition home or self-care (01) ==
LOC: RADMRIMAIN 15:32
PROVIDERS: ATTEND Family Medicine
DX: G31.1 Senile degeneration of brain, not elsewhere classified (principal); G43.009 Migraine without aura, not intractable, without status migrainosus; Z82.49 Family history of ischemic heart disease and other diseases of the circulatory system
CPT/HCPCS: 70544; 70551

== ENCOUNTER 2020-03-13 16:00 | Emergency (ER) | payer OTHER ==
[2020-03-13 16:17] VITALS: BP 130/63; PULSE 81; RESP 18; TEMP 98.2
--- NOTE | 2020-03-13 17:06 | XR ---
EXAMINATION TYPE: XR hand complete RT DATE OF EXAM: 03/13/2020 COMPARISON: NONE HISTORY: Thumb pain and injury TECHNIQUE: 3 views FINDINGS: Metacarpals are intact. I see no fracture nor dislocation. Joint spaces are fairly normal. IMPRESSION: Negative right hand exam. No fracture.
[2020-03-13] MEDS ORDERED: NAPROXEN 250 MG TAB PO STA (18:17)
--- NOTE | 2020-03-13 18:17 | ED ---
Upper Extremity HPI - General Chief Complaint: Extremity Injury, Upper Stated Complaint: Poss broken thumb Time Seen by Provider: 03/13/20 17:41 Source: patient Mode of arrival: ambulatory Limitations: no limitations - History of Present Illness Initial Comments: Patient is a 60-year-old female presenting to the emergency Department with complaints of pain in her right thumb that happened just prior to arrival. Patient states she was using a hand drill when the drill slipped and turned her right thumb inward. Patient denies any previous injuries of her right hand or wrist. She states she is having a lot of pain extending her right thumb. She is worried that she has a fracture there. She denies any further injuries or complaints at this time. - Related Data Home Medications Medication Instructions Recorded Confirmed Atorvastatin Calcium [Lipitor] 20 mg PO MOWEFR@0900 09/19/18 01/02/20 Ergocalciferol [Vitamin D2 50,000 unit PO TH 09/19/18 01/02/20 (DRISDOL)] Gabapentin [Neurontin] 600 mg PO TID 09/19/18 01/02/20 Levothyroxine Sodium [Synthroid] 75 mcg PO DAILY 09/19/18 01/02/20 Montelukast Sodium [Singulair] 10 mg PO DAILY 09/19/18 01/02/20 Pantoprazole Sodium [Protonix] 40 mg PO DAILY 09/19/18 01/02/20 Raloxifene [Evista] 60 mg PO HS 09/19/18 01/02/20 Temazepam [Restoril] 30 mg PO HS 09/19/18 01/02/20 Topiramate [Topamax] 100 mg PO BID 09/19/18 01/02/20 ursodioL [Actigall] 300 mg PO BID 09/19/18 01/02/20 Celecoxib [CeleBREX] 200 mg PO HS 01/02/20 01/02/20 DULoxetine HCL [Cymbalta] 30 mg PO DAILY 01/02/20 01/02/20 FLUoxetine HCL [PROzac] 60 mg PO DAILY 01/02/20 01/02/20 predniSONE See Taper PO DAILY 01/02/20 01/02/20 Allergies Allergy/AdvReac Type Severity Reaction Status Date / Time acetaminophen [From Tylenol] AdvReac can not Verified 03/13/20 16:17 take due to liver disease codeine AdvReac Abdominal Verified 03/13/20 16:17 Pain hydrocodone AdvReac Abdominal Verified 03/13/20 16:17 Pain morphine AdvReac Abdominal Verified 03/13/20 16:17 Pain Review of Systems ROS Statement: Those systems with pertinent positive or pertinent negative responses have been documented in the HPI. ROS Other: All systems not noted in ROS Statement are negative. Past Medical History Past Medical History: GERD/Reflux, Hyperlipidemia, Liver Disease, Osteoarthritis (OA), Thyroid Disorder Additional Past Medical History / Comment(s): primary biliary cirrhosis of liver, migraines, hiatal hernia, hypglycemia History of Any Multi-Drug Resistant Organisms: None Reported Past Surgical History: Back Surgery, Bladder Surgery, Cholecystectomy, Hysterectomy, Orthopedic Surgery Additional Past Surgical History / Comment(s): rt foot bunionectomy, arthroscopy rt knee, boone elbow surgery for spurs/tendons, rt shoulder rotator cuff, liver biopsy, Past Anesthesia/Blood Transfusion Reactions: No Reported Reaction Past Psychological History: Anxiety Smoking Status: Former smoker Past Alcohol Use History: Rare Past Drug Use History: Marijuana - Past Family History Father Family Medical History: Cancer General Exam - General Exam Comments Initial Comments: GENERAL: Patient is well-developed and well-nourished. Patient is nontoxic and in no acute distress. HEAD: Atraumatic, normocephalic. EYES: Pupils equal round and reactive to light, extraocular movements intact, sclera anicteric, conjunctiva are normal. Eyelids were unremarkable. ENT: TMs normal, nares patent, oropharynx clear without exudates. Moist mucous membranes. NECK: Normal range of motion, supple without lymphadenopathy or JVD. LUNGS: Unlabored respirations. Breath sounds clear to auscultation bilaterally and equal. No wheezes rales or rhonchi. HEART: Regular rate and rhythm without murmurs, rubs or gallops. ABDOMEN: Soft, nontender, normoactive bowel sounds. No guarding, no rebound. No masses appreciated. : Deferred MUSCULOSKELETAL: Patient has pain with palpation of the right thumb, dorsal aspect. She has pain with extension and opposition. There is no obvious deformity or swelling. No pain of the right wrist or rest of the right hand. She is neurovascular intact. No clubbing or cyanosis. NEUROLOGICAL: Patient is alert and oriented x 3. Motor and sensory are also intact. Normal speech, normal gait. PSYCH: Normal mood, normal affect. SKIN: Warm, Dry, normal turgor, no rashes or lesions noted. Limitations: no limitations Course Vital Signs 03/13/20 03/13/20 16:11 18:02 Temperature 98.2 F Pulse Rate 81 Respiratory 18 18 Rate Blood Pressure 130/63 O2 Sat by Pulse 100 Oximetry Medical Decision Making - Medical Decision Making Patient is 60-year-old female here for right thumb pain after getting it twisted while using a power tool. X-rays reveal no acute fractures dislocations of the right thumb. I discussed with patient this is most likely a sprain of the thumb. We did put an Quang wrap on the thumb. I recommended doing ice to the area, ibuprofen for discomfort. If symptoms persist after 1-2 weeks, recommend following up with orthopedics. Patient is agreement with this plan of care. She is stable for discharge. Disposition Clinical Impression: Sprain of right thumb Disposition: HOME SELF-CARE Condition: Stable Instructions (If sedation given, give patient instructions): Finger Sprain (ED) Additional Instructions: Please return to the Emergency Department if symptoms worsen or any other concerns. May take Aleve or Motrin for discomfort. Use Quang wrap for comfort. If symptoms persist after 1-2 weeks, follow up with orthopedics as discussed. Is patient prescribed a controlled substance at d/c from ED?: No Referrals: Kate Figueroa DO [Primary Care Provider] - 1-2 days
== END 2020-03-13 18:31 | disposition home or self-care (01) ==
LOC: EC 16:00
DX: S63.601A Unspecified sprain of right thumb, initial encounter (principal); E07.9 Disorder of thyroid, unspecified; E78.5 Hyperlipidemia, unspecified; K21.9 Gastro-esophageal reflux disease without esophagitis; M19.90 Unspecified osteoarthritis, unspecified site; G43.909 Migraine, unspecified, not intractable, without status migrainosus; F41.9 Anxiety disorder, unspecified; Z79.899 Other long term (current) drug therapy; Z79.890 Hormone replacement therapy; Z79.1 Long term (current) use of non-steroidal anti-inflammatories (NSAID); Z79.51 Long term (current) use of inhaled steroids; Z88.5 Allergy status to narcotic agent; Z88.6 Allergy status to analgesic agent; Z87.891 Personal history of nicotine dependence; W26.8XXA Contact with other sharp object(s), not elsewhere classified, initial encounter
CPT/HCPCS: 99283

== ENCOUNTER → 2020-06-08 | Outpatient (CLI) | payer OTHER ==
--- NOTE | 2020-06-08 09:49 | CT ---
EXAMINATION TYPE: CT chest w con DATE OF EXAM: 06/08/2020 COMPARISON: 01/02/2020 HISTORY: Lung nodule CT DLP: 225.6 mGycm Automated exposure control for dose reduction was used. CONTRAST: CT scan of the chest is performed with IV Contrast, patient injected with 100 mL of Isovue 300. FINDINGS: LUNGS: Stable pulmonary nodule right upper lobe image 13 of 49. No additional pulmonary nodules ident ified. No evidence for focal infiltrate or volume loss. No pleural effusion identified. MEDIASTINUM: There are no greater than 1 cm hilar or mediastinal lymph nodes. No pericardial effusi on is seen. Thoracic aorta is of normal caliber. The heart is not enlarged. UPPER ABDOMEN: Mild hepatic steatosis noted. Cholecystectomy clips are in place. OTHER: No additiona l significant abnormality is seen. IMPRESSION: Stable right upper lobe pulmonary nodule. Stability over a two-year timeframe should be documented ra diographically. Consider follow-up study in one year.
== END | disposition home or self-care (01) ==
LOC: RADCTMAIN 09:06
PROVIDERS: ATTEND Internal Medicine
DX: R91.1 Solitary pulmonary nodule (principal)
CPT/HCPCS: 71260; Q9967

== ENCOUNTER → 2020-12-29 | Outpatient (CLI) | payer OTHER ==
--- NOTE | 2020-12-30 06:48 | CT ---
EXAMINATION TYPE: CT chest w con DATE OF EXAM: 12/29/2020 COMPARISON: HISTORY: Lung nodule. Pt reports no issues. Family hx of ca. CT DLP: 468 mGycm Automated exposure control for dose reduction was used. CONTRAST: CT scan of the chest is performed with IV Contrast, patient injected with 100 mL of Isovue 300. FINDINGS: LUNGS: Pulmonary nodule right upper lobe image 1254 unchanged from prior study. No additional pulmonary nodu les identified. No evidence for infiltrate, effusion or volume loss. MEDIASTINUM: There are no greater than 1 cm hilar or mediastinal lymph nodes. No pericardial effusi on is seen. Thoracic aorta is of normal caliber. The heart is not enlarged. UPPER ABDOMEN: Unchanged from previous OTHER: No additional significant abnormality is seen. IMPRESSION: Stable right upper lobe pulmonary nodule. Stability over a two-year timeframe should be documented radiographically. Consider follow-up study in one year.
== END | disposition home or self-care (01) ==
LOC: RADCTMAIN 15:33
PROVIDERS: ATTEND Internal Medicine
DX: R91.1 Solitary pulmonary nodule (principal)
CPT/HCPCS: 71260; Q9967

== ENCOUNTER → 2021-07-23 | Outpatient (CLI) | payer OTHER ==
--- NOTE | 2021-07-26 08:54 | CT ---
EXAMINATION TYPE: CT chest w con DATE OF EXAM: 07/23/2021 COMPARISON: 12/29/2020, 01/02/2020 HISTORY: H/O LUNG NODULE CT DLP: 289.4 mGycm, Automated exposure control for dose reduction was used. CONTRAST: Performed injected with 100 mL of Isovue 300. TECHNIQUE: Axial images were obtained at 5 mm thick sections. Reconstructed images are reviewed on [employer] computer in the coronal plane. FINDINGS: Portion of the thyroid visualized is normal. No suspicious lung nodules or focal infiltrates are present. Previous small density is more chronic a ppearance and is stable at the right apex. Series 4 image 13. No enlarged mediastinal or hilar adenopathy is evident. The ascending aorta diameter at the level o f the main pulmonary artery is 3.2 cm. The main pulmonary artery diameter at the bifurcation is 2.[address] sections are obtained through the upper abdomen. Abdomen is essentially unremarkable. IMPRESSIONS: 1. No significant interval change right upper lobe nodule. Follow-up exam in 6 months is recommended. This should be confirmed as stable over the course of 2 years.
== END | disposition home or self-care (01) ==
LOC: RADCTMAIN 16:33
PROVIDERS: ATTEND Internal Medicine
DX: R91.1 Solitary pulmonary nodule (principal)
CPT/HCPCS: 71260; Q9967

== ENCOUNTER → 2021-11-23 | Outpatient (CLI) | payer OTHER ==
--- NOTE | 2021-11-23 19:16 | CT ---
EXAMINATION TYPE: CT abdomen w con CT DLP: 726.80 mGycm, Automated exposure control for dose reduction was used. DATE OF EXAM: 11/23/2021 5:04 PM COMPARISON: None CLINICAL INDICATION:Female, 61 years old with history of R10.9 ABDOMEN PAIN K74.3 PRIMARY BILIARY CIR RHOSIS; Rt side abdominal pain, painful to palpate. Abnormal weight gain over 2 months. Hx Primary bi liary cirrhosis. TECHNIQUE: Axial CT of the abdomen. Sagittal and coronal reformats [facility] Contrast used:100 mL of Isovue 300 with IV Contrast, Oral contrast used: with Oral Contrast FINDINGS: LOWER CHEST: Unremarkable ABDOMEN LIVER: Diffusely hypoattenuating parenchyma. GALLBLADDER AND BILE DUCTS: The gallbladder is surgically absent. There is no evidence for intrahepat ic or extrahepatic biliary ductal dilatation. PANCREAS: Unremarkable. SPLEEN: Unremarkable. ADRENAL GLANDS: Unremarkable. KIDNEYS AND URETERS: No evidence of hydronephrosis. Nonobstructing right renal calculus measuring 3 m m. Extrarenal pelves bilaterally. ABDOMEN & PELVIS STOMACH AND BOWEL: There is a large stool burden throughout the visualized colon. No evidence of trista l obstruction. PERITONEUM: No evidence of pneumoperitoneum or free fluid. VASCULATURE: No evidence of aortic aneurysm. MUSCULOSKELETAL: No acute osseous abnormalities, partially visualized fixation hardware seen within t he spine hardware appears intact. LYMPH NODES: No gross evidence for lymphadenopathy. SOFT TISSUE/ABDOMINAL WALL: Unremarkable IMPRESSION: 1. No evidence of acute process in the visualized abdomen. 2. Hepatic steatosis without evidence for biliary ductal dilatation. 3. Large stool burden throughout the visualized colon. 4. Nonobstructing right renal calculus.
== END | disposition home or self-care (01) ==
LOC: RADCTMAIN 16:03
PROVIDERS: ATTEND Family Medicine
DX: K74.3 Primary biliary cirrhosis (principal); K76.0 Fatty (change of) liver, not elsewhere classified; N20.0 Calculus of kidney
CPT/HCPCS: 74160; Q9967

== ENCOUNTER → 2022-01-24 | Outpatient (CLI) | payer OTHER ==
--- NOTE | 2022-01-25 11:09 | CT ---
EXAMINATION TYPE: CT chest w con CT DLP: 405.7 mGycm, Automated exposure control for dose reduction was used. DATE OF EXAM: 01/24/2022 7:30 PM COMPARISON: Multiple CTs of the chest with most recent on 07/23/2021 CLINICAL INDICATION:Female, 61 years old with history of R91.1 SOLITARY PULMONARY NODULE; TECHNIQUE: Multiple axial images were obtained through the chest. Sagittal and coronal reformats were created for review. Contrast used:100cc mL of Isovue 300 with IV Contrast, . Oral contrast used: none. FINDINGS: LUNGS/ PLEURA: Stable right upper lobe 5 mm pulmonary nodule series 3 image 13, stable left upper lob e 5 mm pulmonary nodule image 9 AIRWAY: Patent and unremarkable. HEART: Size within normal limits. MEDIASTINUM: No gross evidence of adenopathy. VASCULATURE: No aortic aneurysm. MUSCULOSKELETAL: No acute osseous abnormalities, partially visualized surgical changes of lower lumba r spine with hardware in place. SOFT TISSUES/LYMPH NODES: Unremarkable. LOWER NECK: No significant findings. UPPER ABDOMEN: The gallbladder surgically absent. Right nonobstructing renal calculus. Bilateral extr arenal pelves partially visualized. IMPRESSION: Stable pulmonary nodules in the right upper lobe and left upper lobe back to 2019. No further follow- up for these 2 nodules recommended.
== END | disposition home or self-care (01) ==
LOC: RADCTMAIN 18:59
PROVIDERS: ATTEND Internal Medicine
DX: R91.8 Other nonspecific abnormal finding of lung field (principal)
CPT/HCPCS: 71260; Q9967

== ENCOUNTER → 2023-03-17 | Outpatient (CLI) | payer MEDICARE, OTHER ==
--- NOTE | 2023-03-27 21:27 | MR ---
EXAMINATION TYPE: MR shoulder LT wo con DATE OF EXAM: 03/17/2023 COMPARISON: Outside radiograph 03/17/2023 HISTORY: 63-year-old female M25.512, Left shoulder pain, S/P fall. TECHNIQUE: Multiplanar, multisequence imaging of the left shoulder is performed without contrast. FINDINGS: There is abnormal signal at the biceps anchor and contiguous abnormal signal within the sup erior labrum and extending into the intracapsular portion of the long biceps tendon. The subscapularis tendon appears intact. There is moderate to severe degenerative change of the acromial clavicular joint with prominent peria rticular capsular edema and mild subarticular osseous edema. Marginal spurring is present. Inferior s purring minimally contacts the underlying cuff. There is a small amount of localized fluid in the subacromial bursa. Trace fluid near the lateral del toid shelf. Diffuse heterogeneity of both the supraspinatus and infraspinatus tendons. There is a high-grade bursal sided tear of the anterior supraspinatus tendon measuring 1.0 cm long an d 1.1 cm AP. There is shallow bursal sided tearing measuring 1.0 cm long at the junction of the infraspinatus and supraspinatus tendons located at the level of the AC joint, proximal to the insertion. No atrophy of the rotator cuff musculature. No glenohumeral joint effusion. Mild diffuse thinning of glenohumeral joint articular cartilage. No Hill-Sachs deformity or os acromiale. No suspicious bone marrow replacement. IMPRESSION: 1. Diffuse rotator cuff tendinosis. There is a high-grade bursal sided tear of the anterior supraspin atus tendon measuring 1.1 x 1.0 cm. 2. Shallow bursal sided tear measuring 1.0 cm long at the junction of the supraspinatus and infraspin atus tendons proximal to the footprint, below the level of the AC joint. No full-thickness rotator cu ff tear seen. No muscle atrophy. 3. Partial tear of the intracapsular portion of the long head biceps tendon with tear extending to in clude the biceps anchor and superior labrum. 4. Moderate to severe AC joint OA. Some inferior spurring is present. This may contribute to subacrom ial impingement with dynamic maneuvers. 5. Mild diffuse degenerative cartilage thinning throughout the glenohumeral joint.
== END | disposition home or self-care (01) ==
LOC: RADMRIMAIN 13:30
PROVIDERS: ATTEND Orthopaedic Surgery
DX: M19.012 Primary osteoarthritis, left shoulder (principal); M67.814 Other specified disorders of tendon, left shoulder; S46.012A Strain of muscle(s) and tendon(s) of the rotator cuff of left shoulder, initial encounter; W19.XXXA Unspecified fall, initial encounter

== ENCOUNTER 2023-05-18 07:31 | Day surgery (SDC) | payer MEDICARE, OTHER ==
--- NOTE | 2023-05-17 21:34 | HP ---
HISTORY AND PHYSICAL Surgery is scheduled for 05/18/2023. HISTORY OF PRESENT ILLNESS: Kailey Larson is a 63-year-old patient seen with progressive left shoulder pain. We discussed options for treatment. She elected to proceed with left shoulder arthroscopy. Consent was obtained. PAST MEDICAL HISTORY: Hyperlipidemia, gastroesophageal reflux disease, hypothyroidism. PAST SURGICAL HISTORY: Shoulder arthroscopy, spine surgery, knee arthroscopy. DAILY MEDICATIONS: 1. Atorvastatin. 2. Celebrex. 3. Lasix. 4. Levothyroxine. 5. Potassium. 6. Protonix. ALLERGIES: Morphine. SOCIAL HISTORY: She denies tobacco use. PHYSICAL EVALUATION OF THE LEFT SHOULDER: Flexion is 90 degrees, abduction is 80 degrees. External rotation is 40 degrees with pain and weakness. Tenderness along the anterolateral acromion and rotator cuff insertion. Impingement is positive at 80 degrees. Cross-body adduction sign is positive. Drop-arm sign is positive. Distal neurovascular exam is intact. IMAGING STUDIES: Radiographs of the left shoulder revealed a calcification within the tendon consistent with calcific tendinitis. Left shoulder MRI revealed rotator cuff tear, acromioclavicular joint osteoarthritis, and partial long head biceps tendon tear. IMPRESSION: 1. Left shoulder impingement with rotator cuff tear. 2. Left shoulder acromioclavicular joint osteoarthritis. 3. Left shoulder partial biceps tendon tear. 4. Hypothyroidism. 5. Hyperlipidemia. 6. Gastroesophageal reflux disease. PLAN: Left shoulder arthroscopy with rotator cuff repair, subacromial decompression, Joanne, biceps tenodesis, and debridement. MMODL / IJN: [id number] /
[~2023-05-18 07:31] MED LIST changes: -BACITRACIN 50,000 UNIT, POLYMYXIN B 500,000 UNIT in SODIUM CHLORIDE 0.9% IRRIGATIO 1,00... IRRIGATION ONE; +DEXAMETHASONE SOD PHOSPHATE 4 MG/ML 1 ML VIAL IV ONE; +LIDOCAINE 1% (10MG/ML) FOR IV START INTRADERMA PRN; -LIDOCAINE 1% 20 ML VIAL (10MG/ML) FOR IV START INTRADERMA PRN; -METOCLOPRAMIDE 5 MG/ML 2 ML VIAL IVP PRN; -ceFAZolin IN SWFI 2 GM/20 ML SYRINGE IVP ONE; +droPERidol 5 MG/2 ML VIAL IVP ONE; +fentaNYL (PF) 50 MCG/ML 2 ML AMP IV PRN
[2023-05-18 08:28] LABS: Glucose,Whole Blood 88 mg/dL (70-110)
[2023-05-18] MEDS ORDERED: LACTATED RINGERS 1,000 ML IV ONE (08:30)
[2023-05-18] MEDS ORDERED: DEXAMETHASONE SOD PHOSPHATE 4 MG/ML 1 ML VIAL IVP ONE (08:37)
[2023-05-18] MEDS ORDERED: MIDAZOLAM 2 MG/2 ML VIAL IVP ONE (08:37)
[2023-05-18] MEDS ORDERED: ONDANSETRON 4 MG/2 ML VIAL IVP ONE (08:37)
--- NOTE | 2023-05-18 09:40 | P.ANPRN ---
Procedure Note - Anesthesia - Nerve Block Performed Left Interscalene Single Time Out Performed: Yes ([id number]) Date of Procedure: 05/18/23 Procedure Start Time: 08:37 Procedure Stop Time: 08:41 Location of Patient: PreOp Indication: Acute Post-Operative Pain, Requested by Surgeon Specifically requested for management of pain by DrKieran: Selwyn Schuler Sedation Type: Sedate with meaningful contact maintained Preparation: Sterile Prep Position: Supine Catheter: None Needle Types: Pajunk Needle Gauge: 21 Ultrasound used to visualize needle placement: Yes Ultrasound used to observe medication spread: Yes Injectate: 0.5% Ropivacaine (see comment for volume) (30cc) Blood Aspirated: No Pain Paresthesia on Injection Noted: No Resistance on Injection: Normal Image Stored and Saved: Yes Events: Uneventful and Well Tolerated
[2023-05-18] MEDS ORDERED: SUCCINYLCHOLINE CHLORIDE 200 MG/10 ML VIAL IV ONE (10:07)
[2023-05-18] MEDS ORDERED: ROPIVACAINE 5 MG/ML 30 ML VIAL ONE (10:07)
[2023-05-18] MEDS ORDERED: ROCURONIUM 10 MG/ML (5 ML VIAL) IV ONE (10:07)
[2023-05-18] MEDS ORDERED: PHENYLEPHRINE 10 MG/ML VIAL ONE (10:07)
[2023-05-18] MEDS ORDERED: fentaNYL (PF) 50 MCG/ML 2 ML AMP ONE (10:07)
[2023-05-18] MEDS ORDERED: LIDOCAINE 1% INJ 10MG/ML (20 ML MDV) ONE (10:07)
[2023-05-18] MEDS ORDERED: PROPOFOL 10 MG/ML 20 ML VIAL IV ONE (10:07)
[2023-05-18] MEDS ORDERED: NEOSTIGMINE 1 MG/ML 10 ML VIAL ONE (10:07)
[2023-05-18] MEDS ORDERED: GLYCOPYRROLATE 0.2 MG/ML 2 ML VIAL ONE (10:07)
--- NOTE | 2023-05-18 11:40 | P.OP ---
Date of Procedure: 05/18/23 Preoperative Diagnosis: Left shoulder impingement Postoperative Diagnosis: 1. Left shoulder rotator cuff tear 2. Left shoulder partial long head biceps tendon tear 3. Left shoulder impingement 4. Left shoulder acromioclavicular joint osteoarthritis Procedure(s) Performed: 1. Left shoulder arthroscopic rotator cuff repair 2. Left shoulder arthroscopic biceps tenodesis 3. Left houlder arthroscopic subacromial decompression 4. Left shoulder arthroscopic Joanne procedure 5. Left shoulder arthroscopic debridement labral tear Implants: 1Arthrex 5.5 swivel lock anchor 1Arthrex 4.75 swivel lock anchor Anesthesia: GETA, regional (Interscalene block) Surgeon: Selwyn Schuler Glass Blower Helper #1: Glenroy Stone Estimated Blood Loss (ml): 8 Pathology: none sent Condition: stable Disposition: PACU Indications for Procedure: 63-year-old patient was seen with progressive left shoulder pain. After having treatment options discussed with her, she elected to proceed with arthroscopy. Operative Findings: see description of procedure Description of Procedure: Patient underwent an interscalene block by department of anesthesia. The patient was then taken to the operative suite. The patient underwent a general anesthetic by the department of anesthesia. The patient was placed into a lateral position and secured. There was appropriate padding of the bony prominence. Left shoulder was then prepped and draped in normal sterile orthopedic fashion. We placed the extremity in 10 pounds of longitudinal traction. A posterior incision was now made for a posterior working portal site. The trocar and cannula were inserted into the glenohumeral joint. Arthroscopy was initiated. Spinal needle was now inserted anteriorly, to ascertain the anterior working portal site. An incision was now made in that area, a trocar was inserted followed by a probe. There was some superficial tearing of the superior labrum. There was about 50% tearing of the biceps along the anchor area. There were grade 2 chondromalacia changes of the humeral head and glenoid fossa. I debrided out the superficial labral tear. I decided post with an arthroscopic biceps tenodesis. I introduced a cannula through my anterior portal site. With the assistance of Brian DURÁN past a loop and tacked type stitch through the biceps tendon. I now completed my release along the attachment to the labrum. We now punched a hole in the interval area for insertion of an anchor. The suture limb was now passed through the eyelet Arthrex 4.75 swivel lock anchor. We placed the eyelet into the prepunched hole. I held it in position while Brian DURÁN tensioned the suture and the reji the anchor with good fixation noted. The residual suture limb was now clipped. We had a stable appearing biceps tenodesis. Instruments were now removed from the glenohumeral joint. Utilizing the posterior working portal site, the trocar and cannula were inserted into the subacromial space. Arthroscopy initiated. I made an incision 2 fingerbreadths lateral to the acromion. I introduced my trocar followed by my ArthroCare ablator. I now began ablating thick subacromial bursal tissue, which exposed the undersurface of the anterior acromion. There was diminished subacromial space. There was a very prominent anterior acromion. A motorized bur was introduced and a subacromial decompression was performed. I also excised some osteophytes off the inferior aspect of the distal clavicle. The AC joint was visualized and noted to be fairly arthritic. The motorized bur was introduced in the anterior portal site and a Joanne procedure was performed without difficulty, decompressing the AC joint nicely. I turned my attention to the rotator cuff. There was a 1 cm tear along the distal supraspinatus. I debrided the margins getting down to stable tendon tissue. The defect measured approximately 1.5 cm and was freely mobile over the footprint. I abraded the footprint with a motorized bur. With assistance of Brian DURÁN past 3 everted mattress sutures through good bites of rotator cuff tendon. I punched hole in the footprint area for insertion of an anchor. All 6 limbs of suture we re passed through the eyelet of an Arthrex 5.5 swivel lock anchor. I placed the eyelet into the prepunched hole. I held it in position while Brian DURÁN tensioned all 6 limbs of suture and the reji the anchor with reasonable fixation noted. All residual suture limbs were now clipped. We had good compression of the tendon along the entire footprint. Instruments now removed from the portal sites. All portal sites were approximated with nylon suture. Sterile dressings were applied followed by a shoulder sling. Glenroy DURÁN assisted in this complex case. The patient was awakened, transferred to a bed, and taken to recovery in stable condition.
[2023-05-18 11:50] VITALS: TEMP 96.8
[2023-05-18 12:38] VITALS: RESP 20
[2023-05-18 13:51] VITALS: BP 119/65; PULSE 57
== END 2023-05-18 15:16 | disposition home or self-care (01) ==
LOC: OR 07:31
PROVIDERS: ATTEND Orthopaedic Surgery
DX: S46.212A Strain of muscle, fascia and tendon of other parts of biceps, left arm, initial encounter (principal); M75.102 Unspecified rotator cuff tear or rupture of left shoulder, not specified as traumatic; M19.012 Primary osteoarthritis, left shoulder; E78.5 Hyperlipidemia, unspecified; F41.9 Anxiety disorder, unspecified; G43.909 Migraine, unspecified, not intractable, without status migrainosus; K74.5 Biliary cirrhosis, unspecified; K44.9 Diaphragmatic hernia without obstruction or gangrene; K21.9 Gastro-esophageal reflux disease without esophagitis; E03.9 Hypothyroidism, unspecified; Z79.890 Hormone replacement therapy; Z79.899 Other long term (current) drug therapy; Z88.5 Allergy status to narcotic agent; Z88.6 Allergy status to analgesic agent; Z91.048 Other nonmedicinal substance allergy status; Z90.49 Acquired absence of other specified parts of digestive tract; Z96.659 Presence of unspecified artificial knee joint; Z98.890 Other specified postprocedural states; X58.XXXA Exposure to other specified factors, initial encounter
CPT/HCPCS: 64415; 29828; 29827; 29826; 29824; C1713 ×3; J2250; J0330; J1100; J2710; J0690; J2405; J2001; J3010; J2795; J2704; J2371

== ENCOUNTER 2023-09-11 08:05 | Day surgery (SDC) | payer MEDICARE, OTHER ==
[2023-09-06 10:39] VITALS: BMI 33.8
--- NOTE | 2023-09-10 13:14 | HP ---
HISTORY AND PHYSICAL Surgery 09/11/2023. Kailey Larson is a 63-year-old patient, seen with left shoulder adhesive capsulitis with history of previous arthroscopy. We discussed options. She elected to proceed with manipulation under anesthesia, left shoulder, with steroid injection. Consent obtained. PAST MEDICAL HISTORY: Hypertension, hyperlipidemia, hypothyroidism. PAST SURGICAL HISTORY: Shoulder arthroscopy, spine surgery, knee arthroscopy. DAILY MEDICATIONS: 1. Atorvastatin. 2. Celebrex. 3. Lasix. 4. Levothyroxine. 5. . ALLERGIES: Morphine. SOCIAL HISTORY: She denies tobacco use. PHYSICAL EVALUATION OF THE LEFT SHOULDER: Her previous arthroscopic portal sites are well healed. Flexion is 80 degrees. Abduction is 50 degrees. External rotation is 10 degrees with good strength. Distal neurovascular exam is intact. RADIOGRAPHS: Were obtained of left shoulder revealing some calcifications in the subacromial space. IMPRESSION: 1. Left shoulder adhesive capsulitis. 2. History of left shoulder arthroscopy. 3. Hypertension. 4. Hyperlipidemia. PLAN: Manipulation under anesthesia, left shoulder, with steroid injection. MMODL / IJN: [id number] /
[~2023-09-11 08:05] MED LIST changes: -DEXAMETHASONE SOD PHOSPHATE 4 MG/ML 1 ML VIAL IV ONE; -LACTATED RINGERS 1,000 ML IV SCH; -ONDANSETRON 4 MG/2 ML VIAL IVP ONE; -droPERidol 5 MG/2 ML VIAL IVP ONE; -fentaNYL (PF) 50 MCG/ML 2 ML AMP IV PRN
[2023-09-11] MEDS: LACTATED RINGERS 1,000 ML IV SCH (08:35)
[2023-09-11] MEDS: ONDANSETRON 4 MG/2 ML VIAL IVP PRN (08:35)
[2023-09-11 09:22] LABS: Glucose,Whole Blood 78 mg/dL (70-110)
[2023-09-11] MEDS ORDERED: KETOROLAC 15 MG/ML 1 ML VIAL ONE (09:28)
[2023-09-11] MEDS ORDERED: fentaNYL (PF) 50 MCG/ML 2 ML AMP ONE (09:28)
[2023-09-11] MEDS ORDERED: PROPOFOL 10 MG/ML 20 ML VIAL IV ONE (09:28)
[2023-09-11 09:29] VITALS: TEMP 96.6
[2023-09-11] MEDS: BUPIVACAINE (PF) 0.25% 30 ML VIAL INTRAARTIC ONE (09:36)
[2023-09-11] MEDS: methylPREDNISolone ACETATE 80 MG/ML 1 ML VIAL INTRAARTIC ONE (09:37)
--- NOTE | 2023-09-11 09:43 | P.OP ---
Date of Procedure: 09/11/23 Preoperative Diagnosis: Left shoulder adhesive capsulitis Postoperative Diagnosis: Left shoulder adhesive capsulitis Procedure(s) Performed: Manipulation under anesthesia left shoulder with steroid injection Anesthesia: MAC Surgeon: Selwyn Schuler Estimated Blood Loss (ml): 0 Pathology: none sent Condition: stable Disposition: PACU Indications for Procedure: 63-year-old patient seen with persistent left shoulder adhesive capsulitis. After having treatment options discussed, she elected to proceed with manipulation under anesthesia left shoulder with steroid injection. Operative Findings: See description of procedure Description of Procedure: Patient was taken to a monitored anesthesia area. She received IV sedation by the department of anesthesia. Once sufficient anesthesia was noted I performed a manipulation of the left shoulder achieving full range of motion with audible tearing of the adhesions. The anterior aspect of the left shoulder was prepped and draped in the normal sterile fashion. I injected a solution of 1 cc Depo- Medrol and 2 cc of 4% plain Marcaine intra-articular glenohumeral joint left shoulder under sterile technique. A sterile Band-Aid was applied. I again took the shoulder through range of motion. Patient was awakened having tolerated procedure well.
[2023-09-11] MEDS: HYDROmorphone 0.5 MG/0.5 ML SYRINGE IVP PRN (10:00)
[2023-09-11 11:56] VITALS: BP 128/82; PULSE 69; RESP 17
== END 2023-09-11 11:35 | disposition home or self-care (01) ==
LOC: OR 08:05
PROVIDERS: ATTEND Orthopaedic Surgery
DX: M75.02 Adhesive capsulitis of left shoulder (principal); I10 Essential (primary) hypertension; E78.5 Hyperlipidemia, unspecified; E03.9 Hypothyroidism, unspecified; G43.909 Migraine, unspecified, not intractable, without status migrainosus; F41.9 Anxiety disorder, unspecified; K21.9 Gastro-esophageal reflux disease without esophagitis; K74.5 Biliary cirrhosis, unspecified; Z79.890 Hormone replacement therapy; Z79.899 Other long term (current) drug therapy; Z88.5 Allergy status to narcotic agent; Z87.891 Personal history of nicotine dependence; Z88.8 Allergy status to other drugs, medicaments and biological substances; Z88.6 Allergy status to analgesic agent; Z79.1 Long term (current) use of non-steroidal anti-inflammatories (NSAID); Z98.890 Other specified postprocedural states
CPT/HCPCS: 23700; J2405; J3010; J1885; J2704; J1170; J0665; J1010

== ENCOUNTER 2024-06-26 11:06 | Day surgery (SDC) | payer MEDICARE, OTHER ==
[2024-06-26] MEDS: IV FLUID CONTINUATION 1,000 ML IV ONE (11:48)
[2024-06-26 11:52] VITALS: RESP 16; TEMP 98.4
[2024-06-26 12:00] LABS: Glucose,Whole Blood 80 mg/dL (70-110)
[2024-06-26] MEDS: LACTATED RINGERS 1,000 ML IV SCH (12:00)
[2024-06-26] MEDS ORDERED: PROPOFOL 10 MG/ML 20 ML VIAL IV ONE (12:52)
[2024-06-26] MEDS ORDERED: LIDOCAINE 2% (PF) 20 MG/ML 5 ML VIAL ONE (12:52)
--- NOTE | 2024-06-26 13:02 | P.PCN ---
Date of Procedure: 06/26/24 Procedure(s) Performed: BRIEF HISTORY: Patient is a 58-year-old, pleasant, white female with history of primary biliary cholangitis/cirrhosis of the liver scheduled for an upper endoscopy for screening for esophageal varices.. PROCEDURE PERFORMED: Esophagogastroduodenoscopy. PREOPERATIVE DIAGNOSIS: History of liver cirrhosis/screening for esophageal varices. IV sedation per anesthesia. PROCEDURE: After informed consent was obtained, the patient was brought into the endoscopy unit. IV sedation was administered by Anesthesia under continuous monitoring. Initially the Olympus GIF-140 video endoscope was inserted into the mouth. Esophagus intubated without any difficulty. It was gradually advanced into the stomach and duodenum and carefully examined. The bulb and the second part of the duodenum appeared normal. The scope at this time was withdrawn to the stomach, adequately insufflated with air, and upon careful examination, mucosa of the antrum patchy areas of erythema noted in the antrum. Mucosa of the, body, cardia and the fundus appeared normal. No evidence of gastric varices seen. The scope was then withdrawn into the esophagus. The GE junction was located at 39 cm from the incisors. The esophagus appeared normal. There were no esophageal varices seen. There were no erosions or ulcerations seen and the patient tolerated the procedure well. IMPRESSION: 1. No gastric or esophageal varices. 2. Mild antral gastritis. RECOMMENDATIONS: The findings of this examination were discussed with the patient as well as her family.. Advised to have repeat upper endoscopy in 3 years to screen for esophageal varices
[2024-06-26 13:39] VITALS: BP 112/76; PULSE 64
== END 2024-06-26 13:48 | disposition home or self-care (01) ==
LOC: ORWHC2ENDO 11:06
PROVIDERS: ATTEND Internal Medicine Gastroenterology
DX: K74.3 Primary biliary cirrhosis (principal); K74.60 Unspecified cirrhosis of liver; K29.70 Gastritis, unspecified, without bleeding; I10 Essential (primary) hypertension; E78.5 Hyperlipidemia, unspecified; E03.9 Hypothyroidism, unspecified; M19.90 Unspecified osteoarthritis, unspecified site; K21.9 Gastro-esophageal reflux disease without esophagitis; Z79.890 Hormone replacement therapy; Z79.899 Other long term (current) drug therapy; Z90.49 Acquired absence of other specified parts of digestive tract; Z88.5 Allergy status to narcotic agent; Z88.6 Allergy status to analgesic agent; Z88.8 Allergy status to other drugs, medicaments and biological substances
CPT/HCPCS: 43235; J2704; J2003

== ENCOUNTER → 2024-08-05 | Outpatient (CLI) | payer MEDICARE, OTHER ==
[2024-08-05 12:48] LABS: Basophils # (A) 0.05 10*3/uL (0.00-0.10); Basophils % (A) 0.8 %; Eosinophils # (A) 0.18 10*3/uL (0.04-0.35); Eosinophils % (A) 2.9 %; HCT 36.8 % (37.2-46.3); HGB 11.8 g/dL (12.0-15.0); Lymphocytes # (A) 2.05 10*3/uL (0.90-5.00); Lymphocytes % (A) 33.1 %; MCH 30.7 pg (27.0-32.0); MCHC 32.1 g/dL (32.0-37.0); MCV 95.8 fL (80.0-97.0); Mean Platelet Volume 9.9 fL (9.5-12.2); Monocytes # (A) 0.53 10*3/uL (0.20-1.00); Monocytes % (A) 8.5 %; Neutrophils # (A) 3.38 10*3/uL (1.80-7.70); Neutrophils % (A) 54.5 %; Platelet Count 245 10*3/uL (140-440); RBC 3.84 10*6/uL (4.10-5.20); RDW 13.8 % (11.5-14.5)
[2024-08-05 15:42] LABS: ALT 98 U/L (8-44); AST 82 U/L (13-35); Albumin/Globulin Ratio 1.38 Ratio (1.60-3.17); Alkaline Phosphatase 257 U/L (41-126); BUN/Creat Ratio 23.89 Ratio (12.00-20.00); Bilirubin, Conjugated <0.20 mg/dL (0.20-0.40); Bilirubin,Unconjugated >0.10 mg/dL (0.20-1.00); Blood Urea Nitrogen 21.5 mg/dL (9.0-27.0); Calcium 9.4 mg/dL (8.7-10.3); Carbon Dioxide 21.9 mmol/L (21.6-31.8); Chloride 109 mmol/L (96-109); Globulin 2.9 g/dL (1.6-3.3); Glucose 76 mg/dL (70-110); Potassium 4.7 mmol/L (3.5-5.5); Sodium 142 mmol/L (135-145); Total Bilirubin 0.3 mg/dL (0.3-1.2); Total Protein 6.9 g/dL (6.2-8.2)
== END | disposition home or self-care (01) ==
LOC: LABWHC1 11:16
PROVIDERS: ATTEND Nurse Practitioner Family
DX: K74.3 Primary biliary cirrhosis (principal)
CPT/HCPCS: 36415; 80053; 82105; 82248; 85025

== ENCOUNTER → 2024-09-09 | Outpatient (CLI) | payer MEDICARE, OTHER ==
[2024-09-09 15:23] LABS: ALT 40 U/L (8-44); AST 39 U/L (13-35); Albumin/Globulin Ratio 1.29 Ratio (1.60-3.17); Alkaline Phosphatase 291 U/L (41-126); BUN/Creat Ratio 17.56 Ratio (12.00-20.00); Blood Urea Nitrogen 15.8 mg/dL (9.0-27.0); Calcium 9.5 mg/dL (8.7-10.3); Carbon Dioxide 20.9 mmol/L (21.6-31.8); Chloride 103 mmol/L (96-109); Globulin 3.1 g/dL (1.6-3.3); Glucose 91 mg/dL (70-110); Potassium 4.7 mmol/L (3.5-5.5); Sodium 135 mmol/L (135-145); Total Bilirubin 0.4 mg/dL (0.3-1.2); Total Protein 7.1 g/dL (6.2-8.2)
[2024-09-09 15:28] LABS: Basophils # (A) 0.04 X 10*3/uL (0.00-0.10); Basophils % (A) 0.5 %; Eosinophils # (A) 0.15 X 10*3/uL (0.04-0.35); HCT 36.5 % (37.2-46.3); HGB 11.6 g/dL (12.0-15.0); INR 0.95 sec (0.93-1.11); Lymphocytes # (A) 2.37 X 10*3/uL (0.90-5.00); Lymphocytes % (A) 31.8 %; MCH 29.6 pg (27.0-32.0); MCHC 31.8 g/dL (32.0-37.0); MCV 93.1 FL (80.0-97.0); Mean Platelet Volume 10.1 FL (9.5-12.2); Monocytes # (A) 0.56 X 10*3/uL (0.20-1.00); Monocytes % (A) 7.5 %; NRBC Per 100 WBC 0 X 10*3/uL (0.00-0.01); Neutrophils # (A) 4.32 X 10*3/uL (1.80-7.70); Neutrophils % (A) 57.9 %; Platelet Count 280 X 10*3/uL (140-440); Prothrombin Time 10.7 sec (9.9-11.9); RBC 3.92 X 10*6/uL (4.10-5.20); WBC 7.46 X 10*3/uL (4.50-10.00)
== END | disposition home or self-care (01) ==
LOC: LABWHC1 10:11
PROVIDERS: ATTEND Internal Medicine Gastroenterology
DX: K43.3 Parastomal hernia with obstruction, without gangrene (principal)
CPT/HCPCS: 36415; 80053; 85025; 85610